=== PATIENT | female | born 1980 | race Caucasian/White ===

== ENCOUNTER 2017-07-13 12:37 | Emergency (ER) | payer OTHER ==
[2017-07-13 12:43] VITALS: BP 132/80; PULSE 94; RESP 18; TEMP 98.5
[2017-07-13] MEDS ORDERED: LORazepam 2 MG/ML INJ IV STA (13:02)
[2017-07-13 13:41] LABS: Acetaminophen <10.0 ug/mL; Salicylate <1.0 mg/dL
[2017-07-13 14:26] LABS: Amphetamine Screen,Urine Not Detected (NotDetected); Barbiturate Screen,Urine Not Detected (NotDetected); Benzodiazepines Screen,Urine Detected (NotDetected); Cocaine Screen,Urine Not Detected (NotDetected); Methadone Screen, Urine Not Detected (NotDetected); Opiate Screen,Urine Not Detected (NotDetected); Oxycodone Screen, Urine Not Detected (NotDetected); Phencyclidine Screen,Urine Not Detected (NotDetected); Tricyclic Antidepressant,Urine Not Detected (NotDetected); Urn Cannabinoid Scrn Detected (NotDetected)
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
[2017-07-13] MEDS ORDERED: ACETAMINOPHEN TAB 325 MG TAB PO STA (19:22)
[2017-07-13] MEDS ORDERED: ALPRAZolam 0.5 MG TAB PO STA (21:23)
== END 2017-07-13 22:11 ==
LOC: EC 12:37
DX: S61.512A Laceration without foreign body of left wrist, initial encounter (principal); F32.9 Major depressive disorder, single episode, unspecified; R45.83 Excessive crying of child, adolescent or adult; K50.90 Crohn's disease, unspecified, without complications; F17.200 Nicotine dependence, unspecified, uncomplicated; Z79.899 Other long term (current) drug therapy; Z88.6 Allergy status to analgesic agent; X78.0XXA Intentional self-harm by sharp glass, initial encounter; Y93.89 Activity, other specified
CPT/HCPCS: 82075; 36415; 80306; 83520 ×2; 99285; 12002; 96374; J2060

== ENCOUNTER 2018-08-08 03:51 | Emergency (ER) | payer OTHER ==
[2018-08-08 04:02] VITALS: BP 101/61; PULSE 90; RESP 20; TEMP 99.4
--- NOTE | 2018-08-08 04:03 | ED ---
Lower Extremity Injury HPI - General Chief Complaint: Extremity Injury, Lower Stated Complaint: ankle injury Source: patient Mode of arrival: wheelchair Limitations: no limitations - History of Present Illness Initial Comments: The patient is a 38-year-old female who reports she was walking when she slipped on the ice twisting her left ankle. Patient states he rarely last night because she was at her cousin's [facility] service. She reports that she was walking home around 3 AM when she slipped on the ice. She had immediate pain she has been able to ambulate at which time she decided to come to the ER for evaluation. She has no history of injury or surgery to this ankle. - Related Data Home Medications Medication Instructions Recorded Confirmed ALPRAZolam [Xanax] 0.5 mg PO BID 07/13/17 08/08/18 PARoxetine HCL [Paxil] 40 mg PO DAILY 07/13/17 08/08/18 predniSONE 40 mg PO DAILY 08/08/18 08/08/18 Previous Rx's Medication Instructions Recorded Ibuprofen [Motrin] 600 mg PO Q8HR PRN #60 tab 08/08/18 Allergies Allergy/AdvReac Type Severity Reaction Status Date / Time aspirin Allergy Swelling Verified 07/13/17 14:03 Review of Systems ROS Statement: Those systems with pertinent positive or pertinent negative responses have been documented in the HPI. ROS Other: All systems not noted in ROS Statement are negative. Past Medical History Additional Past Medical History / Comment(s): Crohn's Disease; Kidney Stones History of Any Multi-Drug Resistant Organisms: None Reported Additional Past Surgical History / Comment(s): Lithotripsy Past Psychological History: Depression Smoking Status: Current every day smoker Past Alcohol Use History: Occasional Past Drug Use History: Marijuana General Exam - General Exam Comments Initial Comments: Physical Exam GENERAL: Patient is well-developed and well-nourished. Patient is nontoxic and well- hydrated and is in no distress. HENT: Normocephalic, Atraumatic. EYES: PERRL, EOMI PULMONARY: Unlabored respirations. No audible rales rhonchi or wheezing was noted. CARDIOVASCULAR: There is a regular rate and rhythm without any murmurs gallops or rubs. ABDOMEN: Soft and nontender with normal bowel sounds. SKIN: Skin is clear with no lesions or rashes and otherwise unremarkable. : Deferred NEUROLOGIC: Patient is alert and oriented x3. Moving all extremities spontaneously MUSCULOSKELETAL: Significant swelling over the lateral malleolus and anterior lateral foot consistent with sprain of the ATF ligament No bony tenderness PSYCHIATRIC: Normal psychiatric evaluation. Limitations: no limitations Limitations: no limitations Course Vital Signs 08/08/18 03:57 Temperature 99.4 F Pulse Rate 90 Respiratory 20 Rate Blood Pressure 101/61 O2 Sat by Pulse 97 Oximetry Medical Decision Making - Medical Decision Making Patient was seen and evaluated history is obtained from the patient patient with a mechanical slip and fall inverting her foot X-rays were ordered and reviewed there is no acute fracture of the there may be some mild bony abnormality on the lateral malleolus no obvious fracture X-ray was read by radiology who agreed there is no acute fracture The ankle was wrapped in an Edilson wrap, rest, ice, compression and elevation were discussed with the patient. 600 mg by mouth Motrin was prescribed. Patient was advised follow-up with her primary care physician but was referred to orthopedics for reevaluation of any persistent pain. All questions pertaining to care were answered to the best my ability the patient was discharged home in stable condition. Disposition Clinical Impression: Left ankle sprain Disposition: HOME SELF-CARE Condition: Stable Instructions (If sedation given, give patient instructions): Ankle Sprain (ED) Prescriptions: Ibuprofen [Motrin] 600 mg PO Q8HR PRN #60 tab PRN Reason: Pain Is patient prescribed a controlled substance at d/c from ED?: No Referrals: Harman Wang MD [Primary Care Provider] - 1-2 days Gian Cruz DO [Medical Doctor] - 1-2 days
--- NOTE | 2018-08-08 04:36 | XR ---
EXAM: XR Left Ankle Complete, 3 or More Views CLINICAL HISTORY: ITS.REASON XR Reason: Pain, slip and fall TECHNIQUE: Frontal, lateral and oblique views of the left ankle. COMPARISON: No relevant prior studies available. IMPRESSION: Soft tissue swelling overlying the lateral malleolus. There is lucency at the lateral cortex of the distal femur, likely a venous channel. No definite fracture or dislocation. Ankle mortise is intact.
== END 2018-08-08 04:55 | disposition home or self-care (01) ==
LOC: EC 03:51
DX: S93.402A Sprain of unspecified ligament of left ankle, initial encounter (principal); F32.9 Major depressive disorder, single episode, unspecified; F17.200 Nicotine dependence, unspecified, uncomplicated; Z88.6 Allergy status to analgesic agent; Z79.52 Long term (current) use of systemic steroids; Z79.899 Other long term (current) drug therapy; Z87.442 Personal history of urinary calculi; Z98.890 Other specified postprocedural states; W00.0XXA Fall on same level due to ice and snow, initial encounter; Y93.01 Activity, walking, marching and hiking
CPT/HCPCS: 99283

== ENCOUNTER → 2021-08-17 | Outpatient (CLI) | payer OTHER ==
--- NOTE | 2021-08-18 07:25 | CT ---
EXAMINATION TYPE: CT abdomen pelvis wo con DATE OF EXAM: 08/17/2021 COMPARISON: 10/01/2010 HISTORY: bilateral flank pain, hx of stones CT DLP: 276.7 mGycm Examination of the solid and hollow viscera is limited given the lack of contrast. FINDINGS: LUNG BASES: No evidence for nodule. No evidence for infiltrate. LIVER/GB: The gallbladder is unremarkable. No space-occupying hepatic lesion. PANCREAS: No pancreatic mass identified. No inflammatory process seen. SPLEEN: No evidence for splenomegaly. No intrasplenic lesions seen. ADRENALS: No adrenal nodules identified. No evidence for thickening. KIDNEYS: 6 mm calculus at the left UPJ resulting in mild to moderate left-sided hydronephrosis. No ad ditional calculi seen at this time. No other renal masses identified. BOWEL: Appendix has a normal appearance. No evidence of bowel obstruction. No inflammatory process. S mall bowel surgical anastomosis seen. Lymph nodes: No evidence for adenopathy greater than 1 cm. Abdominal aorta: Atheromatous changes seen. No evidence for aneurysm. Genital organs: No significant abnormality. Other: No significant abnormality. IMPRESSION: 6 mm calculus at the left UPJ resulting in mild to moderate left-sided hydronephrosis. No additional calculi seen at this time.
== END | disposition home or self-care (01) ==
LOC: RADCTMAIN 16:54
PROVIDERS: ATTEND Internal Medicine
DX: N13.2 Hydronephrosis with renal and ureteral calculous obstruction (principal)
CPT/HCPCS: 74176

== ENCOUNTER → 2021-08-20 | Outpatient (CLI) | payer OTHER ==
--- NOTE | 2021-08-20 13:26 | XR ---
AB HISTORY: N 201, renal calculi KUB submitted on [address] scan 08/17/2021 There is a proximal left ureteral calculus at the level of the left L3 transverse process measuring a pproximately 7-8 mm in size. Postop changes are noted to the bowel. Lung bases are clear. There are p hleboliths present within the pelvis. IMPRESSION: Left-sided ureteral calculus, postop change
== END | disposition home or self-care (01) ==
LOC: RADXRMAIN 12:11
PROVIDERS: ATTEND Urology
DX: N20.1 Calculus of ureter (principal)
CPT/HCPCS: 74018

== ENCOUNTER 2021-08-27 11:30 | Day surgery (SDC) | payer OTHER ==
[2021-08-23 11:59] VITALS: BMI 25.7
--- NOTE | 2021-08-24 09:42 | P.HPIHPCON ---
History of Present Illness H&P Date: 08/24/21 this is a 41-year-old female history of a 8 mm left-sided proximal stone. She is symptomatic from her stone. Options of ESWL and ureteroscopy was discussed with her in detail. She agreed to proceed with left-sided ureteroscopy. Discussed the risk which includes but not limited to bleeding, infection, injury to the ureter. Discussed also risks from anesthesia. Discussed the potential of needing additional operations. She understood all the risk and agree to proceed with left-sided ureteroscopy with holmium laser lithotripsy, stone basketing and stent Consent for Procedure: I have explained the operation/procedure to the patient, including the risks, benefits, side effects, alternative therapies (including not receiving the proposed treatment or service), the likelihood of the patient achieving his/her goals, and potential recuperation problems for the procedure/sedation/analgesia, as well as any blood products, if indicated. I also explained to the patient the risks, benefits and side effects of the alternatives, as well as the risks related to not receiving the proposed procedure, care, treatment, or services. - Constitutional Constitutional: Denies chills, Denies fever - Cardiovascular Cardiovascular: Denies chest pain, Denies shortness of breath - Respiratory Respiratory: Denies cough, Denies 7 - Gastrointestinal Gastrointestinal: Reports abdominal pain, Reports nausea - Genitourinary (Female) Genitourinary: Denies dysuria, Denies hematuria - Musculoskeletal Musculoskeletal: Denies myalgias Past Medical History Additional Past Medical History / Comment(s): Crohn's Disease; Kidney Stones History of Any Multi-Drug Resistant Organisms: None Reported Additional Past Surgical History / Comment(s): Lithotripsy, RT COLECTOMY 04/2021 Past Anesthesia/Blood Transfusion Reactions: No Reported Reaction Smoking Status: Current every day smoker - Past Family History Mother Family Medical History: No Reported History Medications and Allergies Home Medications Medication Instructions Recorded Confirmed Type PARoxetine HCL [Paxil] 40 mg PO HS 07/13/17 08/23/21 History ARIPiprazole [Abilify] 5 mg PO HS 08/23/21 08/23/21 History traZODone HCL 100 mg PO HS 08/23/21 08/23/21 History Allergies Allergy/AdvReac Type Severity Reaction Status Date / Time aspirin Allergy Swelling Verified 08/23/21 11:51 Assessment and Plan Assessment: 41 yo hx of left sided ureteral stone -OR for left-sided ureteroscopy, holmium laser lithotripsy, stone basketing and stent insertion
[~2021-08-27 11:30] MED LIST: LIDOCAINE 1% (10MG/ML) FOR IV START INTRADERMA PRN; ONDANSETRON 4 MG/2 ML VIAL IVP ONE
--- NOTE | 2021-08-27 12:11 | XR ---
EXAMINATION TYPE: XR KUB DATE OF EXAM: 08/27/2021 HISTORY: Pain Comparison: None.Single KUB is submitted for interpretation. Findings: Right renal calculi: None Visualized. Right ureteral calculi: None Visualized. Left renal calculi: None Visualized. Left ureteral calculi: 6 mm left UPJ calculus. Pelvic calcifications: Pelvic phleboliths noted. Bowel gas pattern is unremarkable. No free air. No mass effects. IMPRESSION: 1. 6 mm left UPJ calculus.
[2021-08-27 12:13] VITALS: RESP 16
[2021-08-27] MEDS: LACTATED RINGERS 1,000 ML IV SCH ×2 (12:13→14:40)
[2021-08-27] MEDS ORDERED: DEXAMETHASONE SOD PHOSPHATE 4 MG/ML 1 ML VIAL IV ONE (12:24)
[2021-08-27] MEDS ORDERED: PROPOFOL 10 MG/ML 20 ML VIAL IV ONE (12:33)
[2021-08-27] MEDS ORDERED: MIDAZOLAM 2 MG/2 ML VIAL ONE (12:33)
[2021-08-27] MEDS ORDERED: fentaNYL (PF) 50 MCG/ML 2 ML AMP ONE (12:33)
[2021-08-27] MEDS ORDERED: LIDOCAINE 1% INJ 10MG/ML (20 ML MDV) ONE (12:33)
[2021-08-27] MEDS ORDERED: IOPAMIDOL-370 50ML BTL IRRIGATION ONE (13:30)
--- NOTE | 2021-08-27 13:46 | P.OP ---
Date of Procedure: 08/27/21 Preoperative Diagnosis: Left ureteral stone Postoperative Diagnosis: Same Procedure(s) Performed: Cystoscopy, left ureteroscopy, holmium laser lithotripsy, stone basketing, and retrograde pyelogram Implants: None Anesthesia: AMINAA Surgeon: Ovidio Machado Estimated Blood Loss (ml): 5 Pathology: other (left ureteral stone) Condition: stable Disposition: PACU Indications for Procedure: this is a 41-year-old female history of a 8 mm left-sided proximal stone. She is symptomatic from her stone. Options of ESWL and ureteroscopy was discussed with her in detail. She agreed to proceed with left-sided ureteroscopy. Discussed the risk which includes but not limited to bleeding, infection, injury to the ureter. Discussed also risks from anesthesia. Discussed the potential of needing additional operations. She understood all the risk and agree to p roceed with left-sided ureteroscopy with holmium laser lithotripsy, stone basketing and stent Operative Findings: Left UPJ stone Description of Procedure: Patient brought to the operating room, general anesthesia was induced. She was prepped and draped in sterile fashion and placed in a dorsal lithotomy position. Cystoscopy fitted with a 21-Swiss sheath was inserted per urethra, cystoscopy was performed which showed no abnormality within the bladder. Next a sensor wire was advanced through the scope and up the left ureteral orifice and into the renal pelvis. The stone was radiopaque. Next an [id number] Swiss access sheath was passed over the wire and into the proximal ureter. Next a flexible ureteroscope was inserted through the access sheath, stone was encountered at the UPJ. Using the holmium laser the stone was fragmented into small fragments, sizable fragments were removed using the stone basket. Repeat cystoscopy showed no sizable fragments or injury to the kidney. On fluoroscopy there was no radiopaque fragments. Retrograde pyelogram was performed through the scope to ensure all calyces were evaluated. A pullback ureteroscopy was performed showed no injury to the ureter, thus ureteral stent was not placed. The bladder was emptied at the end of the case, the stones were sent for analysis. Patient tolerated the procedure well was taken to recovery in stable condition
[2021-08-27 13:53] VITALS: TEMP 97.3
[2021-08-27] MEDS ORDERED: KETOROLAC 15 MG/ML 1 ML VIAL ONE (14:34)
[2021-08-27] MEDS ORDERED: KETOROLAC 15 MG/ML 1 ML VIAL IVP ONE (14:35)
[2021-08-27] MEDS: HYDROmorphone 0.5 MG/0.5 ML SYRINGE IVP PRN (14:36)
[2021-08-27 15:06] VITALS: BP 104/68; PULSE 73
--- NOTE | 2021-08-27 16:01 | FL ---
Fluoroscopy HISTORY: Left ureteral calculus 23 seconds fluoroscopy time supplied to the referring clinician. 2 intraoperative C-arm images docum ent the procedure. See dictated report from urology.
== END 2021-08-27 15:12 | disposition home or self-care (01) ==
LOC: OR 11:30
PROVIDERS: ATTEND Urology
DX: N20.1 Calculus of ureter (principal)
CPT/HCPCS: 52356; 81025; 82365; 74420; 74018; C1769; J2250; J1100; J0690; J2405; J2001; J3010; J1885; J2704; J1170; Q9967

== ENCOUNTER → 2021-12-14 | Outpatient (CLI) | payer OTHER | END | disposition home or self-care (01) | LOC: LABWHC1 13:00 | PROVIDERS: ATTEND Internal Medicine Gastroenterology | DX: K50.90 Crohn's disease, unspecified, without complications (principal) | CPT/HCPCS: 36415; 83993; 86480 ==

== ENCOUNTER 2022-02-01 18:59 | Emergency (ER) | payer OTHER ==
--- NOTE | 2022-02-01 20:23 | XR ---
EXAMINATION TYPE: XR wrist complete LT DATE OF EXAM: 02/01/2022 COMPARISON: NONE HISTORY: Fall. Pain TECHNIQUE: 4 views FINDINGS: There is nondisplaced transverse fracture distal radial metaphysis. There is also intra-art icular fracture line extension. No dislocation. The carpal bones are intact. Metacarpals are intact. IMPRESSION: Acute nondisplaced intra-articular and transverse fracture of the distal radius.
--- NOTE | 2022-02-01 20:24 | XR ---
EXAMINATION TYPE: XR hand limited LT DATE OF EXAM: 02/01/2022 COMPARISON: NONE HISTORY: Pain and swelling TECHNIQUE: 2 views FINDINGS: Metacarpals are intact. Carpal bones are intact. Fingers appear intact. No evidence of frac ture of the hand. There is mild soft tissue swelling on the dorsum of the carpus. IMPRESSION: Mild soft tissue swelling. No hand fracture seen.
--- NOTE | 2022-02-01 20:45 | ED ---
Upper Extremity HPI - General Chief Complaint: Extremity Injury, Upper Stated Complaint: Arm Injury Time Seen by Provider: 02/01/22 19:28 Source: patient Mode of arrival: ambulatory Limitations: no limitations - History of Present Illness Initial Comments: Patient is a 41-year-old female presenting with chief complaint of left wrist pain. Patient states that she tripped while wearing high heels, this caused her to fall backwards and land on her outstretched left hand. She admits to pain and swelling. Denies any numbness or tingling. No other pain in other extremities or areas of the body. No weakness. No headache or vision changes. - Related Data Home Medications Medication Instructions Recorded Confirmed PARoxetine HCL [Paxil] 40 mg PO HS 07/13/17 08/27/21 ARIPiprazole [Abilify] 5 mg PO HS 08/23/21 08/27/21 traZODone HCL 100 mg PO HS 08/23/21 08/27/21 Previous Rx's Medication Instructions Recorded Cephalexin [Keflex] 500 mg PO Q12HR #10 cap 08/27/21 traMADol HCl [Ultram] 50 mg PO Q6HR PRN 3 Days #8 tab 08/27/21 Allergies Allergy/AdvReac Type Severity Reaction Status Date / Time aspirin Allergy Swelling Verified 02/01/22 19:22 Review of Systems ROS Statement: Those systems with pertinent positive or pertinent negative responses have been documented in the HPI. ROS Other: All systems not noted in ROS Statement are negative. Past Medical History Additional Past Medical History / Comment(s): Crohn's Disease; Kidney Stones History of Any Multi-Drug Resistant Organisms: None Reported Additional Past Surgical History / Comment(s): Lithotripsy, RT COLECTOMY 04/2021 Past Anesthesia/Blood Transfusion Reactions: No Reported Reaction Past Psychological History: Depression Smoking Status: Former smoker Past Alcohol Use History: None Reported Past Drug Use History: None Reported - Past Family History Mother Family Medical History: No Reported History General Exam Limitations: no limitations General appearance: alert, in no apparent distress Head exam: Present: atraumatic, normocephalic, normal inspection Eye exam: Present: normal appearance, EOMI. Absent: scleral icterus, periorbital swelling Neck exam: Present: normal inspection Left Hand Wrist exam: Present: tenderness, swelling, deformity. Absent: full ROM Neuro motor exam: Present: fingers 2-5 abduction intact Vascular: Absent: vascular compromise Neurological exam: Present: alert, oriented X3, CN II-XII intact Psychiatric exam: Present: normal affect, normal mood Skin exam: Present: warm, dry, intact, normal color. Absent: rash Course Vital Signs 02/01/22 02/01/22 19:23 20:59 Temperature 98.6 F 98.5 F Pulse Rate 91 92 Respiratory 18 16 Rate Blood Pressure 122/72 137/67 O2 Sat by Pulse 98 97 Oximetry Medical Decision Making - Medical Decision Making Patient is a 41-year-old female presenting with chief complaint of left wrist pain. Patient states she was wearing heels when she stumbled and caught herself on her outstretched left hand. She is complaining of pain, swelling, and apparent deformity to the left wrist. On examination there is limited range of motion, she has full sensation and is able to wiggle the fingers. X-ray shows fracture of the distal radius, nondisplaced. Patient was placed in a sugar tong splint and instructed to follow-up with orthopedics. Educated on supportive treatment. Follow-up with PCP. Report back to ER with any new or worsening symptoms. Discussed return parameters and answered all questions. Patient conveyed verbal understanding and agreed to the plan. I discussed this case with my attending Dr. Jaimes Disposition Clinical Impression: Distal radius fracture Disposition: HOME SELF-CARE Condition: Good Instructions (If sedation given, give patient instructions): Wrist Fracture in Adults (ED) Additional Instructions: Follow up with orthopedics and PCP. Report back to ER with any new or worsening symptoms. Take Tylenol as needed for pain control. Is patient prescribed a controlled substance at d/c from ED?: No Referrals: Liban Oneil MD [Primary Care Provider] - 1-2 days Heraclio Barrientos DO [Doctor of Osteopathic Medicine] - 1-2 days Time of Disposition: 20:45
[2022-02-01 21:01] VITALS: BP 137/67; PULSE 92; RESP 16; TEMP 98.5
== END 2022-02-01 21:01 | disposition home or self-care (01) ==
LOC: EC 18:59
DX: S52.502A Unspecified fracture of the lower end of left radius, initial encounter for closed fracture (principal); Z87.891 Personal history of nicotine dependence; Z88.6 Allergy status to analgesic agent; W01.0XXA Fall on same level from slipping, tripping and stumbling without subsequent striking against object, initial encounter

== ENCOUNTER 2022-07-06 11:30 | Inpatient (IN) | payer OTHER ==
--- NOTE | 2022-07-06 12:01 | ED ---
General Adult HPI - General Chief complaint: Shortness of Breath Stated complaint: 6days post , SOB Time Seen by Provider: 07/06/22 11:49 Source: patient, RN notes reviewed Mode of arrival: wheelchair Limitations: no limitations - History of Present Illness Initial comments: Repeat blood pressure 148/68. Patient is a pleasant 6-year-old female presenting to the emergency department with concerns with shortness of breath. Patient did have done 5 days ago. Patient started with shortness of breath 3 days ago. Patient does have leg edema that is persistent and unchanged. No calf pain. No chest pain. No fever. No cough. No headache or visual changes. No change in mental status. No abdominal pain. Persistent nausea or vomiting. - Related Data Home Medications Medication Instructions Recorded Confirmed PARoxetine HCL [Paxil] 40 mg PO HS 07/13/17 08/27/21 ARIPiprazole [Abilify] 5 mg PO HS 08/23/21 08/27/21 traZODone HCL 100 mg PO HS 08/23/21 08/27/21 Previous Rx's Medication Instructions Recorded Cephalexin [Keflex] 500 mg PO Q12HR #10 cap 08/27/21 traMADol HCl [Ultram] 50 mg PO Q6HR PRN 3 Days #8 tab 08/27/21 Allergies Allergy/AdvReac Type Severity Reaction Status Date / Time aspirin Allergy Swelling Verified 07/06/22 11:44 Review of Systems ROS Statement: Those systems with pertinent positive or pertinent negative responses have been documented in the HPI. ROS Other: All systems not noted in ROS Statement are negative. Constitutional: Denies: fever Eyes: Denies: eye pain ENT: Denies: ear pain Respiratory: Reports: as per HPI, dyspnea. Denies: cough Cardiovascular: Reports: edema. Denies: chest pain Endocrine: Denies: fatigue Gastrointestinal: Denies: abdominal pain Genitourinary: Denies: dysuria Musculoskeletal: Denies: back pain Skin: Denies: lesions Past Medical History Additional Past Medical History / Comment(s): Crohn's Disease; Kidney Stones History of Any Multi-Drug Resistant Organisms: None Reported Additional Past Surgical History / Comment(s): Lithotripsy, RT COLECTOMY 04/2021 Past Anesthesia/Blood Transfusion Reactions: No Reported Reaction Past Psychological History: Depression Smoking Status: Former smoker Past Alcohol Use History: None Reported Past Drug Use History: None Reported - Past Family History Mother Family Medical History: No Reported History General Exam Limitations: no limitations General appearance: alert, in no apparent distress Head exam: Present: normocephalic Eye exam: Present: normal appearance Neck exam: Present: normal inspection Respiratory exam: Present: normal lung sounds bilaterally Cardiovascular Exam: Present: regular rate, normal rhythm GI/Abdominal exam: Present: soft. Absent: tenderness Extremities exam: Present: pedal edema. Absent: calf tenderness Neurological exam: Present: alert Psychiatric exam: Present: normal affect, normal mood Skin exam: Present: normal color Course Vital Signs 07/06/22 07/06/22 07/06/22 11:42 12:14 12:22 Temperature 98.8 F Pulse Rate 84 86 Respiratory 16 17 18 Rate Blood Pressure 162/90 148/68 O2 Sat by Pulse 95 99 Oximetry 07/06/22 12:40 Temperature Pulse Rate 80 Respiratory 15 Rate Blood Pressure 146/87 O2 Sat by Pulse 99 Oximetry EKG Findings - EKG Results: EKG: interpreted by ERMD (Right axis), sinus rhythm, normal QRS, normal ST/T Medical Decision Making - Medical Decision Making Was pt. sent in by a medical professional or institution (, PA, [employer] HIGH [employer]CHOOL TEACHER, urgent care, hospital, or longterm...) When possible be specific @ -Patient was sent in by Dr. Daniels Did you speak to anyone other than the patient for history (EMS, parent, family, police, friend...)? What history was obtained from this source @ -No Did you review nursing and triage notes (agree or disagree)? Why? @ -I reviewed and agree with nursing and triage notes Were old charts reviewed (outside hosp., previous admission, EMS record, old EKG, old radiological studies, urgent care reports/EKG's, longterm records)? Report findings @ -No old charts were reviewed Differential Diagnosis (chest pain, altered mental status, abdominal pain women, abdominal pain men, vaginal bleeding, weakness, fever, dyspnea, syncope, headache, dizziness, GI bleed, back pain, seizure, CVA, palpatations, mental health)? @ -Differential Dyspnea: Coronary syndrome, arrhythmia, tamponade, asthma, COPD, pulmonary embolism, pneumonia, pneumothorax, pulmonary effusion, anaphylaxis, diabetic ketoacidosis, flailed chest, pulmonary contusion, diaphragmatic rupture, anemia, neuromuscular, this is not meant to be an all-inclusive list. EKG interpreted by me (3pts min.). @ -As above X-rays interpreted by me (1pt min.). @ -Chest x-ray shows bilateral lower infiltrates CT interpreted by me (1pt min.). @ -ct report reviewed U/S interpreted by me (1pt. min.). @ -None done What testing was considered but not performed or refused? (CT, X-rays, U/S, labs)? Why? @ -None What meds were considered but not given or refused? Why? @ -None Did you discuss the management of the patient with other professionals (professionals i.e. DrMary Jo, PA, [employer]CHO[employer] TE[employer]ER, lab, RT, psych nurse, social media project manager, dragline engineer, teacher, life science technical officer, case making machine operator)? Give summary @ -Dr. Oswald and Dr. Daniels both paged for further discussion Was smoking cessation discussed for >3mins.? @ -No Was critical care preformed (if so, how long)? @ -No Were there social determinants of health that impacted care today? How? (Homelessness, low income, unemployed, alcoholism, drug addiction, transportation, low edu. Level, literacy, decrease access to med. care, care home, rehab)? @ -No Was there de-escalation of care discussed even if they declined (Discuss DNR or withdrawal of care, Hospice)? DNR status @ -No What co-morbidities impacted this encounter? (DM, HTN, Smoking, COPD, CAD, Cancer, CVA, ARF, Chemo, Hep., AIDS, mental health diagnosis, sleep apnea, morbid obesity)? @ -Recent and recent Was patient admitted / discharged? Hospital course, mention meds given and route, prescriptions, significant lab abnormalities, going to OR and other pertinent info. @ -Reevaluated and updated. Patient will be admitted. Dr. Clarice Daniels both paged Undiagnosed new problem with uncertain prognosis? @ -No Drug Therapy requiring intensive monitoring for toxicity (Heparin, Nitro, Insulin, Cardizem)? @ -No Were any procedures done? @ -No Diagnosis/symptom? @ -Pneumonia Acute, or Chronic, or Acute on Chronic? @ -Acute Uncomplicated (without systemic symptoms) or Complicated (systemic symptoms)? @ -Uncomplicated Side effects of treatment? @ -No Exacerbation, Progression, or Severe Exacerbation? @ -No Poses a threat to life or bodily function? How? (Chest pain, [place], [place], pneumonia, PE, COPD, DKA, ARF, appy, cholecystitis, CVA, Diverticulitis, Homicidal, Suicidal, threat to staff... and all critical care pts) @ -Potential threat if pneumonia worsens causing hypoxia or sepsis Case was discussed in detail with Dr. Daniels who will consult. Case also discussed with Dr. Oneil who will admit his patient and does want pulmonary consult. - Lab Data Result diagrams: 07/06/22 11:55 07/06/22 11:55 Lab Results 07/06/22 07/06/22 07/06/22 Range/Units 11:55 11:55 11:55 WBC 9.1 (3.8-10.6) k/uL RBC 3.14 L (3.80-5.40) m/uL Hgb 8.0 L (11.4-16.0) gm/dL Hct 25.4 L (34.0-46.0) % MCV 80.9 (80.0-100.0) fL MCH 25.6 (25.0-35.0) pg MCHC 31.6 (31.0-37.0) g/dL RDW 17.0 H (11.5-15.5) % Plt Count 359 (150-450) k/uL MPV 9.0 Neutrophils % 76 % Lymphocytes % 13 % Monocytes % 5 % Eosinophils % 3 % Basophils % 1 % Neutrophils # 7.0 (1.3-7.7) k/uL Lymphocytes # 1.2 (1.0-4.8) k/uL Monocytes # 0.5 (0-1.0) k/uL Eosinophils # 0.3 (0-0.7) k/uL Basophils # 0.1 (0-0.2) k/uL Hypochromasia Slight Poikilocytosis Slight Anisocytosis Slight PT 10.4 (9.0-12.0) sec INR 1.0 (<1.2) APTT 23.3 (22.0-30.0) sec D-Dimer 5.82 H (<0.60) mg/L FEU Sodium 140 (137-145) mmol/L Potassium 3.9 (3.5-5.1) mmol/L Chloride 114 H (98-107) mmol/L Carbon Dioxide 19 L (22-30) mmol/L Anion Gap 7 mmol/L BUN 13 (7-17) mg/dL Creatinine 0.60 (0.52-1.04) mg/dL Est GFR (CKD-EPI)AfAm >90 (>60 ml/min/1.73 sqM) Est GFR (CKD-EPI)NonAf >90 (>60 ml/min/1.73 sqM) Glucose 100 H (74-99) mg/dL Plasma Lactic Acid Gerhard (0.7-2.0) mmol/L Uric Acid 5.1 (3.7-7.4) mg/dL Calcium 8.2 L (8.4-10.2) mg/dL Magnesium 1.6 (1.6-2.3) mg/dL Total Bilirubin 0.2 (0.2-1.3) mg/dL AST 21 (14-36) U/L ALT 24 (4-34) U/L Alkaline Phosphatase 119 (38-126) U/L Lactate Dehydrogenase 539 (313-618) U/L NT-Pro-B Natriuret Pep pg/mL Total Protein 5.7 L (6.3-8.2) g/dL Albumin 3.0 L (3.5-5.0) g/dL Urine Color Urine Appearance (Clear) Urine pH (5.0-8.0) Ur Specific [place] (1.001-1.035) Urine Protein (Negative) Urine Glucose (UA) (Negative) Urine Ketones (Negative) Urine Blood (Negative) Urine Nitrite (Negative) Urine Bilirubin (Negative) Urine Urobilinogen (<2.0) mg/dL Ur Leukocyte Esterase (Negative) Urine RBC (0-5) /hpf Urine WBC (0-5) /hpf Ur Squamous Epith Cells (0-4) /hpf Influenza Type A (PCR) (Not Detectd) Influenza Type B (PCR) (Not Detectd) RSV (PCR) (Not Detectd) SARS-CoV-2 (PCR) (Not Detectd) 07/06/22 07/06/22 07/06/22 Range/Units 11:55 11:55 11:55 WBC (3.8-10.6) k/uL RBC (3.80-5.40) m/uL Hgb (11.4-16.0) gm/dL Hct (34.0-46.0) % MCV (80.0-100.0) fL MCH (25.0-35.0) pg MCHC (31.0-37.0) g/dL RDW (11.5-15.5) % Plt Count (150-450) k/uL MPV Neutrophils % % Lymphocytes % % Monocytes % % Eosinophils % % Basophils % % Neutrophils # (1.3-7.7) k/uL Lymphocytes # (1.0-4.8) k/uL Monocytes # (0-1.0) k/uL Eosinophils # (0-0.7) k/uL Basophils # (0-0.2) k/uL Hypochromasia Poikilocytosis Anisocytosis PT (9.0-12.0) sec INR (<1.2) APTT (22.0-30.0) sec D-Dimer (<0.60) mg/L FEU Sodium (137-145) mmol/L Potassium (3.5-5.1) mmol/L Chloride (98-107) mmol/L Carbon Dioxide (22-30) mmol/L Anion Gap mmol/L BUN (7-17) mg/dL Creatinine (0.52-1.04) mg/dL Est GFR (CKD-EPI)AfAm (>60 ml/min/1.73 sqM) Est GFR (CKD-EPI)NonAf (>60 ml/min/1.73 sqM) Glucose (74-99) mg/dL Plasma Lactic Acid Gerhard 1.9 (0.7-2.0) mmol/L Uric Acid (3.7-7.4) mg/dL Calcium (8.4-10.2) mg/dL Magnesium (1.6-2.3) mg/dL Total Bilirubin (0.2-1.3) mg/dL AST (14-36) U/L ALT (4-34) U/L Alkaline Phosphatase (38-126) U/L Lactate Dehydrogenase (313-618) U/L NT-Pro-B Natriuret Pep pg/mL Total Protein (6.3-8.2) g/dL Albumin (3.5-5.0) g/dL Urine Color Colorless Urine Appearance Clear (Clear) Urine pH 6.0 (5.0-8.0) Ur Specific [place] 1.007 (1.001-1.035) Urine Protein Negative (Negative) Urine Glucose (UA) Negative (Negative) Urine Ketones Negative (Negative) Urine Blood Trace H (Negative) Urine Nitrite Negative (Negative) Urine Bilirubin Negative (Negative) Urine Urobilinogen <2.0 (<2.0) mg/dL Ur Leukocyte Esterase Negative (Negative) Urine RBC 1 (0-5) /hpf Urine WBC 1 (0-5) /hpf Ur Squamous Epith Cells 1 (0-4) /hpf Influenza Type A (PCR) Not Detected (Not Detectd) Influenza Type B (PCR) Not Detected (Not Detectd) RSV (PCR) Not Detected (Not Detectd) SARS-CoV-2 (PCR) Not Detected (Not Detectd) 07/06/22 Range/Units 11:55 WBC (3.8-10.6) k/uL RBC (3.80-5.40) m/uL Hgb (11.4-16.0) gm/dL Hct (34.0-46.0) % MCV (80.0-100.0) fL MCH (25.0-35.0) pg MCHC (31.0-37.0) g/dL RDW (11.5-15.5) % Plt Count (150-450) k/uL MPV Neutrophils % % Lymphocytes % % Monocytes % % Eosinophils % % Basophils % % Neutrophils # (1.3-7.7) k/uL Lymphocytes # (1.0-4.8) k/uL Monocytes # (0-1.0) k/uL Eosinophils # (0-0.7) k/uL Basophils # (0-0.2) k/uL Hypochromasia Poikilocytosis Anisocytosis PT (9.0-12.0) sec INR (<1.2) APTT (22.0-30.0) sec D-Dimer (<0.60) mg/L FEU Sodium (137-145) mmol/L Potassium (3.5-5.1) mmol/L Chloride (98-107) mmol/L Carbon Dioxide (22-30) mmol/L Anion Gap mmol/L BUN (7-17) mg/dL Creatinine (0.52-1.04) mg/dL Est GFR (CKD-EPI)AfAm (>60 ml/min/1.73 sqM) Est GFR (CKD-EPI)NonAf (>60 ml/min/1.73 sqM) Glucose (74-99) mg/dL Plasma Lactic Acid Gerhard (0.7-2.0) mmol/L Uric Acid (3.7-7.4) mg/dL Calcium (8.4-10.2) mg/dL Magnesium (1.6-2.3) mg/dL Total Bilirubin (0.2-1.3) mg/dL AST (14-36) U/L ALT (4-34) U/L Alkaline Phosphatase (38-126) U/L Lactate Dehydrogenase (313-618) U/L NT-Pro-B Natriuret Pep 1340 pg/mL Total Protein (6.3-8.2) g/dL Albumin (3.5-5.0) g/dL Urine Color Urine Appearance (Clear) Urine pH (5.0-8.0) Ur Specific [place] (1.001-1.035) Urine Protein (Negative) Urine Glucose (UA) (Negative) Urine Ketones (Negative) Urine Blood (Negative) Urine Nitrite (Negative) Urine Bilirubin (Negative) Urine Urobilinogen (<2.0) mg/dL Ur Leukocyte Esterase (Negative) Urine RBC (0-5) /hpf Urine WBC (0-5) /hpf Ur Squamous Epith Cells (0-4) /hpf Influenza Type A (PCR) (Not Detectd) Influenza Type B (PCR) (Not Detectd) RSV (PCR) (Not Detectd) SARS-CoV-2 (PCR) (Not Detectd) - Radiology Data Radiology results: report reviewed Disposition Clinical Impression: Pneumonia Disposition: ADMITTED IP TO THIS HOSP Is patient prescribed a controlled substance at d/c from ED?: No Referrals: Liban Oneil MD [Primary Care Provider] - 1-2 days Time of Disposition: 14:20
[2022-07-06 12:35] LABS: ALT 24 U/L (4-34); AST 21 U/L (14-36); African American GFR (CKD) >90 (>60 ml/min/1.73 sqM); Alkaline Phosphatase 119 U/L (38-126); Anion Gap 7 mmol/L; Appearance,Urine Clear (Clear); Bilirubin,Urine Negative (Negative); Blood Urea Nitrogen 13 mg/dL (7-17); Blood,Urine Trace (Negative); Calcium 8.2 mg/dL (8.4-10.2); Carbon Dioxide 19 mmol/L (22-30); Chloride 114 mmol/L (98-107); Color,Urine Colorless; Glucose 100 mg/dL (74-99); Glucose,Urine (UA) Negative (Negative); Ketones,Urine Negative (Negative); LDH 539 U/L (313-618); Leukocyte Esterase,Urine Negative (Negative); Magnesium 1.6 mg/dL (1.6-2.3); Nitrite,Urine Negative (Negative); Non-African American GFR(CKD) >90 (>60 ml/min/1.73 sqM); Potassium 3.9 mmol/L (3.5-5.1); Protein,Urine Negative (Negative); RBC,Urine 1 /hpf (0-5); Sodium 140 mmol/L (137-145); Specific Gravity,Urine 1.007 (1.001-1.035); Squamous Epithelial Cell,Urine 1 /hpf (0-4); Total Bilirubin 0.2 mg/dL (0.2-1.3); Total Protein 5.7 g/dL (6.3-8.2); Uric Acid 5.1 mg/dL (3.7-7.4); Urobilinogen,Urine <2.0 mg/dL (<2.0); WBC,Urine 1 /hpf (0-5)
[2022-07-06 12:36] LABS: Partial Thromboplastin Time 23.3 sec (22.0-30.0); Prothrombin Time 10.4 sec (9.0-12.0)
[2022-07-06 12:41] LABS: Anisocytosis Slight; Basophils # (A) 0.1 k/uL (0-0.2); Basophils % (A) 1 %; Eosinophils # (A) 0.3 k/uL (0-0.7); Eosinophils % (A) 3 %; HCT 25.4 % (34.0-46.0); Hypochromasia Slight; Lymphocytes # (A) 1.2 k/uL (1.0-4.8); Lymphocytes % (A) 13 %; MCH 25.6 pg (25.0-35.0); MCHC 31.6 g/dL (31.0-37.0); MCV 80.9 fL (80.0-100.0); Monocytes # (A) 0.5 k/uL (0-1.0); Monocytes % (A) 5 %; Neutrophils % (A) 76 %; Platelet Count 359 k/uL (150-450); Poikilocytosis Slight; RBC 3.14 m/uL (3.80-5.40); WBC 9.1 k/uL (3.8-10.6)
--- NOTE | 2022-07-06 13:01 | XR ---
EXAMINATION TYPE: XR chest 2V DATE OF EXAM: 07/06/2022 COMPARISON: NONE HISTORY: Shortness of breath TECHNIQUE: Frontal and lateral views of the chest are obtained. FINDINGS: There are ill-defined opacities in the lung bases bilaterally suspicious for pneumonia. Tiny pleural effusions are not excluded. There is no pneumothorax. Heart and pulmonary vasculature are normal. The osseous structures are intact. IMPRESSION: Bibasilar infiltrates suspicious for pneumonia. Clinical correlation short-term follow-u p to resolution is recommended.
--- NOTE | 2022-07-06 14:02 | CT ---
EXAMINATION TYPE: CT angio chest DATE OF EXAM: 07/06/2022 1:45 PM COMPARISON: None HISTORY: pe CT DLP: 431 mGycm Automated exposure control for dose reduction was used. CONTRAST: CTA scan of the thorax is performed with IV Contrast, patient injected with 85 mL of Isovue 370, pulm onary embolism protocol. 3-D postprocessing was performed.. FINDINGS: There are bibasilar partially consolidative and partially groundglass airspace densities with small-t o-moderate bilateral pleural effusions. Findings are consistent with an acute infectious process. The great vessels the chest are normal and there is no mediastinal, hilar or axillary adenopathy. There are no filling defects within the pulmonary arteries and branches to suggest pulmonary embolism . The osseous structures are intact. Limited scanning the upper abdomen reveals no gross abnormality. IMPRESSION: 1. No evidence of pulmonary embolism. 2. Bibasilar infiltrates and small to moderate bilateral pleural effusions. The findings are suggesti ve of an acute infectious process and clinical correlation is recommended.
[2022-07-06] MEDS ORDERED: IPRATROPIUM-ALBUTEROL 3 ML NEB INHALATION PRN (14:20)
[2022-07-06] MEDS ORDERED: PNEUMONIA PROTOCOL UTILIZED 1 EACH MISC PO PRN (14:20)
[2022-07-06] MEDS ORDERED: AZITHROMYCIN 500 MG in SODIUM CHLORIDE 0.9% 250 ML IVPB STA (14:20)
[2022-07-06] MEDS: SODIUM CHLORIDE 0.9% 1,000 ML IV SCH (15:00)
[2022-07-06] MEDS: IPRATROPIUM-ALBUTEROL 3 ML NEB INHALATION SCH ×2 (16:28→20:05)
[2022-07-06] MEDS ORDERED: IBUPROFEN 600 MG TAB PO PRN (17:47)
[2022-07-06] MEDS: FERROUS SULFATE 325 MG TAB PO SCH (22:07)
[2022-07-06] MEDS: PARoxetine 20 MG TAB PO SCH (22:07)
[2022-07-06] MEDS: PRENATAL VIT-IRON-FOLIC ACID 1 EACH TABLET PO SCH (22:08)
[2022-07-06] MEDS: ARIPiprazole 5 MG TAB PO SCH (22:08)
--- NOTE | 2022-07-07 07:05 | XR ---
EXAMINATION TYPE: XR chest 2V DATE OF EXAM: 07/07/2022 COMPARISON: 07/06/2022 HISTORY: Shortness of breath TECHNIQUE: Frontal and lateral views of the chest are obtained. FINDINGS: There has been mild interval worsening in the changes most consistent with CHF, including mild worsening in the pulmonary vascular congestion interstitial. No change in the small bilateral pl eural effusions. There is no pneumothorax. The osseous structures are intact. IMPRESSION: Mild interval worsening in the changes most consistent with CHF.
[2022-07-07] MEDS: FERROUS SULFATE 325 MG TAB PO SCH ×2 (07:23→21:07)
[2022-07-07] MEDS: AZITHROMYCIN 500 MG TAB PO SCH (07:23)
[2022-07-07] MEDS: IPRATROPIUM-ALBUTEROL 3 ML NEB INHALATION SCH ×4 (07:42→21:24)
[2022-07-07] MEDS ORDERED: FUROSEMIDE 10 MG/ML 4 ML VIAL IV STA (09:27)
--- NOTE | 2022-07-07 10:23 | P.OBCN ---
History of Present Illness Consult date: 07/07/22 Requesting physician: Liban Oneil Reason for consult: other ( 1 week) Chief complaint: Shortness of breath History of present illness: This is a 42-year-old female 2 para 1011 who is status post primary section on 07/01/2022 in [facility] 2 high risk and oligohydramnios. Patient states she underwent a 4-5 day induction prior to nee ding a section for failure to progress. She did deliver a viable male weighing 9 lbs. 14 oz. Patient had care with Dr. Farmer. She was followed by maternal medicine due to her history of Crohn's and anxiety depression. Patient denies any chest pain or productive cough. She just feels like she can't catch her breath. This has improved since she is been admitted. Computed tomography scan in the ER did rule out pulmonary embolism. She was noted to have bilateral infiltrates. Pulmonary has been consulted. She has been on ibuprofen and oxycodone for pain control post section. She began having shortness of breath shortly after coming home from the hospital on Friday. It has worsened up until she came into the emergency room yesterday. She was told that she had anemia after delivery and she recalls that she was told her hemoglobin was as low as 5.5. She has been on iron since delivery. Obstetrical history: . History of 1 miscarriage. History of 1 section on 07/01/2022 for failure to progress. Gynecologic history: History of chlamydia treated in the past. Social history: She works as a substation technician. Review of Systems Constitutional: Denies chills, Denies fever Eyes: denies blurred vision, denies pain Ears, nose, mouth and throat: Denies headache, Denies sore throat Cardiovascular: Reports dyspnea on exertion, Reports leg edema, Reports shortness of breath, Denies chest pain Respiratory: Reports dyspnea, Denies congestion, Denies cough with sputum, Denies pain on inspiration Gastrointestinal: Reports abdominal pain (Tenderness along her incision), Denies nausea, Denies vomiting Genitourinary: Denies pelvic pain, Denies Musculoskeletal: Denies myalgias Integumentary: Denies pruritus, Denies rash Neurological: Reports weakness, Denies numbness, Denies visual changes Psychiatric: Reports anxiety, Reports depression Past Medical History Additional Past Medical History / Comment(s): Crohn's Disease; Kidney Stones History of Any Multi-Drug Resistant Organisms: None Reported Additional Past Surgical History / Comment(s): Lithotripsy, RT COLECTOMY 04/2021 Past Anesthesia/Blood Transfusion Reactions: No Reported Reaction Past Psychological History: Anxiety, Depression Smoking Status: Former smoker Past Alcohol Use History: None Reported Additional Past Alcohol Use History / Comment(s): SMOKES 1 PPD OR LESS SINCE AGE 18 Past Drug Use History: None Reported, Marijuana (History of medical THC prior to ) Additional Drug Use History / Comment(s): ... - Past Family History Mother Family Medical History: No Reported History Medications and Allergies Home Medications Medication Instructions Recorded Confirmed Type PARoxetine HCL [Paxil] 40 mg PO HS 07/13/17 07/06/22 History ARIPiprazole [Abilify] 5 mg PO HS 08/23/21 07/06/22 History Ferrous Sulfate [Iron (65 MG 325 mg PO BID 07/06/22 07/06/22 History Elemental)] Ibuprofen [Motrin] 600 mg PO Q4-6H 07/06/22 07/06/22 History Vit No.179/Iron/Folic 1 tab PO HS 07/06/22 07/06/22 History [ Tablet] oxyCODONE HCL 5 mg PO Q4H PRN 07/06/22 07/06/22 History Allergies Allergy/AdvReac Type Severity Reaction Status Date / Time aspirin Allergy Swelling Verified 07/06/22 16:13 Exam Osteopathic Statement: *. No significant issues noted on an osteopathic structural exam other than those noted in the History and Physical/Consult. Vital Signs Temp Pulse Pulse Resp BP BP Pulse Ox 07/07/22 07:52 76 07/07/22 07:42 76 07/07/22 07:08 97.8 F 77 16 130/92 98 07/07/22 01:00 88 L 07/07/22 00:54 97.8 F 83 20 132/65 94 L 07/06/22 20:18 78 07/06/22 20:07 70 07/06/22 19:30 20 07/06/22 19:26 97.5 F L 80 20 157/81 94 L 07/06/22 16:40 80 07/06/22 16:29 76 95 07/06/22 16:10 97.8 F 83 14 149/90 95 07/06/22 15:40 76 15 150/83 96 07/06/22 15:00 76 18 150/83 95 07/06/22 12:40 80 15 146/87 99 07/06/22 12:22 18 07/06/22 12:14 86 17 148/68 99 07/06/22 11:42 98.8 F 84 16 162/90 95 FiO2 07/07/22 07:52 07/07/22 07:42 07/07/22 07:08 07/07/22 01:00 21 07/07/22 00:54 07/06/22 20:18 07/06/22 20:07 07/06/22 19:30 07/06/22 19:26 07/06/22 16:40 07/06/22 16:29 07/06/22 16:10 07/06/22 15:40 07/06/22 15:00 07/06/22 12:40 07/06/22 12:22 07/06/22 12:14 07/06/22 11:42 Intake and Output 07/06/22 07/07/22 07/07/22 22:59 06:59 14:59 Intake Total 160 Balance 160 Intake: Oral 160 Other: # Voids 1 Gen.: Well-developed well-nourished female in no acute distress comfortable in bed with O2 on. Lungs: Clear to auscultation bilaterally with some crackles in the right base. Heart: Regular rate and rhythm Abdomen: Soft, positive bowel sounds 4. Incision is clean dry and intact with scant yellow discharge. Extremities: Negative Homans, trace edema bilaterally Results Result Diagrams: 07/06/22 11:55 07/06/22 11:55 Abnormal Lab Results - Last 24 Hours (Table) 07/06/22 07/06/22 07/06/22 Range/Units 11:55 11:55 11:55 RBC 3.14 L (3.80-5.40) m/uL Hgb 8.0 L (11.4-16.0) gm/dL Hct 25.4 L (34.0-46.0) % RDW 17.0 H (11.5-15.5) % D-Dimer 5.82 H (<0.60) mg/L FEU Chloride 114 H (98-107) mmol/L Carbon Dioxide 19 L (22-30) mmol/L Glucose 100 H (74-99) mg/dL Calcium 8.2 L (8.4-10.2) mg/dL Total Protein 5.7 L (6.3-8.2) g/dL Albumin 3.0 L (3.5-5.0) g/dL Procalcitonin (0.02-0.09) ng/mL Urine Blood (Negative) 07/06/22 07/06/22 Range/Units 11:55 11:55 RBC (3.80-5.40) m/uL Hgb (11.4-16.0) gm/dL Hct (34.0-46.0) % RDW (11.5-15.5) % D-Dimer (<0.60) mg/L FEU Chloride (98-107) mmol/L Carbon Dioxide (22-30) mmol/L Glucose (74-99) mg/dL Calcium (8.4-10.2) mg/dL Total Protein (6.3-8.2) g/dL Albumin (3.5-5.0) g/dL Procalcitonin 0.69 H (0.02-0.09) ng/mL Urine Blood Trace H (Negative) Chest x-ray: report reviewed CT scan - chest: report reviewed Assessment and Plan Assessment: Status post primary section postoperative day #7 Bilateral pulmonary infiltrates-probable pneumonia versus questionable CHF on today's chest x-ray Plan: Initially patient had elevated blood pressures in ER however these did come down and preeclamptic workup was negative. Patient states she has had some isolated elevated blood pressures when she is anxious. Agree with pulmonary consult. Possible cardiology consult is CHF is a consideration. Dr. Farmer will return tomorrow. Please do not hesitate to contact me if you have any further questions this weekend.
[2022-07-07] MEDS: SODIUM CHLORIDE 0.9% 1,000 ML IV SCH ×2 (10:52→16:54)
--- NOTE | 2022-07-07 11:49 | P.CNPUL ---
History of Present Illness Consult date: 07/07/22 Requesting physician: Liban Oneil Reason for consult: dyspnea, hypoxemia, pneumonia, abnormal CXR/CT Chief complaint: Shortness of breath. History of present illness: Pulmonary consult dated 07/07/2022. 42-year-old female who presents to the emergency department on July 06, complaining of shortness of breath. The patient is status post section, 6 days ago. The patient developed shortness of breath 4 days ago. In addition, the patient complains of some wheezing, and some swelling in her lower extremities. She denied any chest pain or chest discomfort. There is no fever or chills. She denies any cough or phlegm production. She does have a history of tobacco use. The possible pneumonia. She is currently on 3 L. She's getting saline at 100 mL an hour. She's currently on azithromycin and Rocephin. Her pro-calcitonin level 0.69. Her chest x-ray looks wet to us, and we ended up giving her some Lasix, and turning down her IV fluids. In addition, her N-te rminal proBNP was elevated. She has history of Crohn's disease, and kidney stones. She also had a colectomy back in April 2021. Other medical history includes depression. As mentioned, she does have a history of tobacco use. White count 9.1, hemoglobin 8, hematocrit 25.4, and platelet count 359,000. D- dimer was 5.82. Sodium 140, potassium 3.9, chlorides 114, CO2 19, BUN 13, creatinine 0.6. The patient's pro-calcitonin as mentioned was 0.69. N-terminal proBNP was 1340. Repeat was 1660. Urine was negative. Screening for influenza, RSV, and coronavirus was negative. Chest x-ray suggested some bibasilar infiltrates, but the follow-up chest x-ray suggested a touch of fluid overload as well. CT angiogram was negative for pulmonary embolism. Review of Systems REVIEW OF SYSTEMS: CONSTITUTIONAL: [Negative.] NEUROLOGIC: [ Negative.] HEENT: [ Negative.] CARDIAC: Lower extremity edema. PULMONARY: Shortness of breath, and mild wheezing. GI: [Negative.] : [Negative.] RHEUMATOLOGIC: [ Negative.] IMMUNOLOGIC: [ Negative.] ENDOCRINE: [Negative. ] DERMATOLOGIC: [Negative.] Past Medical History Additional Past Medical History / Comment(s): Crohn's Disease; Kidney Stones History of Any Multi-Drug Resistant Organisms: None Reported Additional Past Surgical History / Comment(s): Lithotripsy, RT COLECTOMY 04/2021 Past Anesthesia/Blood Transfusion Reactions: No Reported Reaction Past Psychological History: Anxiety, Depression Smoking Status: Former smoker Past Alcohol Use History: None Reported Additional Past Alcohol Use History / Comment(s): SMOKES 1 PPD OR LESS SINCE AGE 18 Past Drug Use History: None Reported, Marijuana (History of medical THC prior to ) Additional Drug Use History / Comment(s): ... - Past Family History Mother Family Medical History: No Reported History Medications and Allergies Home Medications Medication Instructions Recorded Confirmed Type PARoxetine HCL [Paxil] 40 mg PO HS 07/13/17 07/06/22 History ARIPiprazole [Abilify] 5 mg PO HS 08/23/21 07/06/22 History Ferrous Sulfate [Iron (65 MG 325 mg PO BID 07/06/22 07/06/22 History Elemental)] Ibuprofen [Motrin] 600 mg PO Q4-6H 07/06/22 07/06/22 History Vit No.179/Iron/Folic 1 tab PO HS 07/06/22 07/06/22 History [ Tablet] oxyCODONE HCL 5 mg PO Q4H PRN 07/06/22 07/06/22 History Allergies Allergy/AdvReac Type Severity Reaction Status Date / Time aspirin Allergy Swelling Verified 07/06/22 16:13 Physical Exam Osteopathic Statement: *. No significant issues noted on an osteopathic structural exam other than those noted in the History and Physical/Consult. Vitals: Vital Signs Temp Pulse Pulse Resp BP BP Pulse Ox 07/07/22 11:32 80 07/07/22 11:21 84 07/07/22 07:52 76 07/07/22 07:42 76 07/07/22 07:08 97.8 F 77 16 130/92 98 07/07/22 01:00 88 L 07/07/22 00:54 97.8 F 83 20 132/65 94 L 07/06/22 20:18 78 07/06/22 20:07 70 07/06/22 19:30 20 07/06/22 19:26 97.5 F L 80 20 157/81 94 L 07/06/22 16:40 80 07/06/22 16:29 76 95 07/06/22 16:10 97.8 F 83 14 149/90 95 07/06/22 15:40 76 15 150/83 96 07/06/22 15:00 76 18 150/83 95 07/06/22 12:40 80 15 146/87 99 07/06/22 12:22 18 07/06/22 12:14 86 17 148/68 99 07/06/22 11:42 98.8 F 84 16 162/90 95 FiO2 07/07/22 11:32 07/07/22 11:21 07/07/22 07:52 07/07/22 07:42 07/07/22 07:08 07/07/22 01:00 21 07/07/22 00:54 07/06/22 20:18 07/06/22 20:07 07/06/22 19:30 07/06/22 19:26 07/06/22 16:40 07/06/22 16:29 07/06/22 16:10 07/06/22 15:40 07/06/22 15:00 07/06/22 12:40 07/06/22 12:22 07/06/22 12:14 07/06/22 11:42 Intake and Output 07/06/22 07/07/22 07/07/22 22:59 06:59 14:59 Intake Total 160 Balance 160 Intake: Oral 160 Other: # Voids 1 Oriented 3. Mild conversational dyspnea. The patient appears tachypneic. HEENT examination is grossly unremarkable. Neck supple. Full range of motion. No adenopathy thyromegaly or neck vein distention. Cardiovascular examination reveals regular rhythm rate. S1-S2 normal. No S3 or S4. No discernible murmur noted. Heart rate 80 bpm. Lungs reveal bibasilar crackles. No wheezes. No rhonchi. Breath sounds equal bilaterally. Saturations 98% on 3 L. Abdomen soft bowel sounds are heard. No masses or tenderness. Extremities are intact. No cyanosis or clubbing. Mild edema is present. Skin is without rash or lesion. Neurologic examination is brief but nonfocal. Results - Laboratory Findings CBC and BMP: 07/06/22 11:55 07/06/22 11:55 PT/INR, D-dimer PT 10.4 sec (9.0-12.0) 07/06/22 11:55 INR 1.0 (<1.2) 07/06/22 11:55 D-Dimer 5.82 mg/L FEU (<0.60) H 07/06/22 11:55 Abnormal lab findings: Abnormal Labs 07/06/22 07/06/22 07/06/22 11:55 11:55 11:55 RBC 3.14 L Hgb 8.0 L Hct 25.4 L RDW 17.0 H D-Dimer 5.82 H Chloride 114 H Carbon Dioxide 19 L Glucose 100 H Calcium 8.2 L Total Protein 5.7 L Albumin 3.0 L Procalcitonin Urine Blood 07/06/22 07/06/22 11:55 11:55 RBC Hgb Hct RDW D-Dimer Chloride Carbon Dioxide Glucose Calcium Total Protein Albumin Procalcitonin 0.69 H Urine Blood Trace H - Diagnostic Findings Chest x-ray: image reviewed CT scan - chest: image reviewed Assessment and Plan Assessment: Acute shortness of breath, likely multifactorial, in part related to pneumonia, possibly aspiration, and mild fluid overload, with 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 No evidence of pulmonary embolism on CT angiogram. Recent section, 07/01/2022. History of Crohn's disease. History of kidney stones. History of right colectomy, April 2021. History of tobacco use. Plan: Plan dated 07/07/2022. The patient's pro-calcitonin was elevated at 0.69. The patient is getting azithromycin and Rocephin. The patient's IV fluids were turned down. We gave her a dose of Lasix. Additional recommendations and suggestions are f orthcoming. Labs, x-rays, and medications are reviewed. Finally, we did order an echocardiogram. Prognosis is guarded. Time with Patient: Greater than 30
[2022-07-07 13:11] LABS: Anisocytosis Slight; Basophils % (A) 1 %; Eosinophils # (A) 0.2 k/uL (0-0.7); Eosinophils % (A) 2 %; HCT 24.1 % (34.0-46.0); HGB 7.6 gm/dL (11.4-16.0); Hypochromasia Moderate; Lymphocytes # (A) 1.2 k/uL (1.0-4.8); Lymphocytes % (A) 14 %; MCH 26.4 pg (25.0-35.0); MCHC 31.5 g/dL (31.0-37.0); Monocytes # (A) 0.5 k/uL (0-1.0); Monocytes % (A) 6 %; Neutrophils # (A) 6.2 k/uL (1.3-7.7); Neutrophils % (A) 76 %; Platelet Count 288 k/uL (150-450); RBC 2.87 m/uL (3.80-5.40); WBC 8.2 k/uL (3.8-10.6)
[2022-07-07 13:29] LABS: ALT 22 U/L (4-34); AST 19 U/L (14-36); African American GFR (CKD) >90 (>60 ml/min/1.73 sqM); Albumin 2.6 g/dL (3.5-5.0); Alkaline Phosphatase 105 U/L (38-126); Anion Gap 5 mmol/L; Blood Urea Nitrogen 12 mg/dL (7-17); Carbon Dioxide 22 mmol/L (22-30); Chloride 114 mmol/L (98-107); Globulin 2.5 g/dL; Glucose 86 mg/dL (74-99); Non-African American GFR(CKD) >90 (>60 ml/min/1.73 sqM); Potassium 3.9 mmol/L (3.5-5.1); Sodium 141 mmol/L (137-145); Total Bilirubin <0.1 mg/dL (0.2-1.3); Total Protein 5.1 g/dL (6.3-8.2)
[2022-07-07] MEDS ORDERED: IBUPROFEN 600 MG TAB PO PRN (16:23)
[2022-07-07] MEDS: PRENATAL VIT-IRON-FOLIC ACID 1 EACH TABLET PO SCH (21:07)
[2022-07-07] MEDS: ARIPiprazole 5 MG TAB PO SCH (21:07)
[2022-07-07] MEDS: PARoxetine 20 MG TAB PO SCH (21:07)
--- NOTE | 2022-07-07 21:23 | PN ---
PROGRESS NOTE DATE OF SERVICE: 07/07/2022 CHIEF COMPLAINT: Shortness of breath with bilateral lower lobe infiltrates. HISTORY OF PRESENT ILLNESS: This lady is doing better. She has been urinating frequently during the night secondary to her Lasix, and breathing is much improved. REVIEW OF SYSTEMS: She denies chest pain, cough, hemoptysis, palpitations, etc. PHYSICAL EXAMINATION: CHEST: Demonstrates very few rales. CARDIAC: Normal. ABDOMEN: Soft, nontender and there are no masses. IMPRESSION: Shortness of breath with bilateral lower lobe pulmonary infiltrates. PLAN: 1. Continue to follow her laboratory studies and vital signs. 2. Echocardiogram. MMODL / IJN: [id number] /
--- NOTE | 2022-07-07 21:38 | CONS ---
CONSULTATION CHIEF COMPLAINT: Shortness of breath. HISTORY OF PRESENT ILLNESS: This is another admission for this 42-year-old white female who just delivered a week or so ago. Because of her age, she was at high risk. She went home and did seem to be doing well and then she started to develop shortness of breath. She came to the emergency room where she was identified as having bilateral lower lobe infiltrates. CTA was normal to rule out pulmonary embolism. She has denied any chest pain, history of heart disease, murmurs, rheumatic fever, etc. Her BNP is elevated. REVIEW OF SYSTEMS: Otherwise unremarkable. She has had no headaches, confusion, neurologic symptoms, change in vision or hearing, hemoptysis, purulent sputum production, fever, chills, nausea, vomiting and diarrhea, melena, urinary complaints, frequency, urgency, dysuria, hematuria, incontinence, or diabetes. She did have urinary tract infection during in April. Past medical history, family history, personal and social histories revealed that she is allergic to aspirin, Mucinex, . She has been on Nasacort, aripiprazole 5 mg once a day, Paxil 40 mg once a day. She does smoke. She does carry a diagnosis of bipolar depression. She has had no vaginal bleeding or foul smelling on discharge. PHYSICAL EXAMINATION: VITAL SIGNS: Blood pressure 138/80 with a pulse of 110, respirations of 36, and she is afebrile. GENERAL: She appears to be in no acute distress. She is breathing a little bit better since diuresing overnight. HEAD, EARS, EYES, NOSE, MOUTH AND THROAT: Normal. CHEST: Clear. CARDIAC: Normal. No murmurs or extra sounds. ABDOMEN: Protuberant, soft, nontender without any masses or visceromegaly. EXTREMITIES: Normal. NEUROLOGICAL: She is intact. IMPRESSION: 1. Acute shortness of breath and respiratory failure. 2. Bilateral lower lobe infiltrates. 3. Recent post delivery. 4. Elevated BMP. PLAN: 1. Bedrest. 2. IV fluids. 3. Continue diureses. 4. Echocardiogram. MMODL / IJN: [id number] /
[2022-07-08 07:33] VITALS: RESP 16
[2022-07-08] MEDS: IPRATROPIUM-ALBUTEROL 3 ML NEB INHALATION SCH ×3 (08:16→15:58)
[2022-07-08] MEDS: FERROUS SULFATE 325 MG TAB PO SCH (08:31)
[2022-07-08] MEDS: AZITHROMYCIN 500 MG TAB PO SCH (08:31)
[2022-07-08] MEDS ORDERED: FUROSEMIDE 10 MG/ML 4 ML VIAL IV STA (09:17)
--- NOTE | 2022-07-08 09:22 | P.PN ---
Subjective Progress Note Date: 07/08/22 42-year-old female who presents to the emergency department on July 06, complaining of shortness of breath. The patient is status post section, 6 days ago. The patient developed shortness of breath 4 days ago. In addition, the patient complains of some wheezing, and some swelling in her lower extremities. She denied any chest pain or chest discomfort. There is no fever or chills. She denies any cough or phlegm production. She does have a history of tobacco use. The possible pneumonia. She is currently on 3 L. She's getting saline at 100 mL an hour. She's currently on azithromycin and Rocephin. Her pro-calcitonin level 0.69. Her chest x-ray looks wet to us, and we ended up giving her some Lasix, and turning down her IV fluids. In addition, her N- terminal proBNP was elevated. She has history of Crohn's disease, and kidney stones. She also had a colectomy back in April 2021. Other medical history includes depression. As mentioned, she does have a history of tobacco use. White count 9.1, hemoglobin 8, hematocrit 25.4, and platelet count 359,000. D- dimer was 5.82. Sodium 140, potassium 3.9, chlorides 114, CO2 19, BUN 13, creatinine 0.6. The patient's pro-calcitonin as mentioned was 0.69. N-terminal proBNP was 1340. Repeat was 1660. Urine was negative. Screening for influenza, RSV, and coronavirus was negative. Chest x-ray suggested some bibasilar infiltrates, but the follow-up chest x-ray suggested a touch of fluid overload as well. CT angiogram was negative for pulmonary embolism. on evaluation of 07/08/2022, I'm seeing the patient for a follow-up. The patient is doing well. She is improved compared to yesterday. Echocardiogram was done this morning and is also still pending for now. There may be a component of cardiomyopathy. The patient does have some crackles in lung bases bilaterally. She is currently on oxygen at 3 L/m nasal cannula. Results of the echocardiogram are still pending for now. The blood work from today shows a hemoglobin of 7.6 with a basic on very 0.2. The BUN is 12 with a creatinine of 0.69. Sodium is at 141. ProBNP level was 1660. Pro-calcitonin level was 0.6. CT angiogram of the chest showed no evidence of any pulmonary embolism. There was bilateral pleural effusion. There was cardiomegaly. There was atelectatic change in lung bases bilaterally. Objective - Vital Signs Vital signs: Vital Signs Temp 98.0 F 07/08/22 07:32 Pulse 92 07/08/22 08:26 Resp 16 07/08/22 07:32 BP 136/84 07/08/22 07:32 Pulse Ox 96 07/08/22 08:18 FiO2 21 07/07/22 01:00 Intake & Output 07/07/22 07/08/22 07/08/22 18:59 06:59 18:59 Intake Total 750 Balance 750 Intake: Oral 750 Other: # Voids 1 2 # Bowel Movements 0 - Exam Oriented 3. Mild conversational dyspnea. The patient appears tachypneic. HEENT examination is grossly unremarkable. Neck supple. Full range of motion. No adenopathy thyromegaly or neck vein dis tention. Cardiovascular examination reveals regular rhythm rate. S1-S2 normal. No S3 or S4. No discernible murmur noted. Heart rate 80 bpm. Lungs reveal bibasilar crackles. No wheezes. No rhonchi. Breath sounds equal bilaterally. Saturations 98% on 3 L. Abdomen soft bowel sounds are heard. No masses or tenderness. Extremities are intact. No cyanosis or clubbing. Mild edema is present. Skin is without rash or lesion. Neurologic examination is brief but nonfocal. - Labs CBC & Chem 7: 07/07/22 05:59 07/07/22 05:59 Labs: Abnormal Lab Results - Last 24 Hours (Table) 07/07/22 07/07/22 Range/Units 05:59 05:59 RBC 2.87 L (3.80-5.40) m/uL Hgb 7.6 L (11.4-16.0) gm/dL Hct 24.1 L (34.0-46.0) % RDW 17.0 H (11.5-15.5) % Chloride 114 H (98-107) mmol/L Calcium 8.0 L (8.4-10.2) mg/dL Total Bilirubin <0.1 L (0.2-1.3) mg/dL Total Protein 5.1 L (6.3-8.2) g/dL Albumin 2.6 L (3.5-5.0) g/dL Microbiology - Last 24 Hours (Table) 07/06/22 14:55 Blood Culture - Preliminary Blood No Growth after 24 hours 07/06/22 14:39 Blood Culture - Preliminary Blood No Growth after 24 hours Assessment and Plan Plan: Acute shortness of breath, rule out possibility of cardiomyopathy/fluid overload. No evidence for embolism. No evidence of pneumonia.. No evidence of pulmonary embolism on CT angiogram Anemia, , likely iron deficiency. This is a acute anemia. Hemoglobin is currently at 7.6 Recent section, 07/01/2022. History of Crohn's disease. History of kidney stones. History of right colectomy, April 2021. History of tobacco use. Plan: put the patient on Lasix 40 mg IV every 12 hours awaiting the results of the echocardiogram Restart vitamins Start the patient on oral iron supplements 325 mg daily I do not see personally any need for antibiotics Surgical one-sided dry clean and intact Check thyroid function tests We'll continue to follow
--- NOTE | 2022-07-08 10:56 | CA ---
Transthoracic Echo Report Name: Denia Kaplan Age: 42 Gender: F : 1980 Exam Date: 07/08/2022 07:46 Exam Location: [facility] Ht (in): 63 Wt (lb): 220 Ordering Physician: Alejandra Frank Attending/Referring Phys: Merchandise Collector Imtiaz Marks RDCS Procedure CPT: Indications: CHF, post Cardiac Hx: Technical Quality: Fair Contrast 1: Total Dose (mL): Contrast 2: Total Dose (mL): MEASUREMENTS (Male / Female) Normal Values 2D ECHO LV Diastolic Volume MOD 4C 135.2 cm??? LV Systolic Volume MOD 4C 54.0 cm??? LV Ejection Fraction MOD 4C 60.0 % LV Diastolic Length 4C 8.8 cm LV Systolic Length 4C 7.0 cm M-MODE Aortic Root Diameter MM 2.5 cm LA Systolic Diameter MM 4.7 cm LA Ao Ratio MM 1.8 MV E Point Septal Separation 0.8 cm AV Cusp Separation MM 1.4 cm DOPPLER AV Peak Velocity 154.9 cm/s AV Peak Gradient 9.6 mmHg AI Peak Velocity 511.3 cm/s AI Peak Gradient 104.6 mmHg AI Pressure Half Time 722.3 ms LVOT Peak Velocity 91.0 cm/s LVOT Peak Gradient 3.3 mmHg MV Area PHT 5.7 cm??? MR Peak Velocity 577.4 cm/s MR Peak Gradient 133.4 mmHg Mitral E Point Velocity 127.3 cm/s Mitral A Point Velocity 78.8 cm/s Mitral E to A Ratio 1.6 MV Deceleration Time 132.2 ms TR Peak Velocity 337.4 cm/s TR Peak Gradient 45.5 mmHg Right Atrial Pressure 8.0 mmHg Pulmonary Artery Systolic Pressu 53.5 mmHg Right Ventricular Systolic Press 53.5 mmHg FINDINGS Left Ventricle Normal Left ventricular size, wall thickness, systolic function with no obvious regional wall motion abnormalities. Left ventricular ejection fraction is estimated at 55-60 %. Right Ventricle Normal right ventricular size. Right ventricular systolic pressure estimated at 51.5 mm hg. Right Atrium Moderate right atrial dilatation. Left Atrium Severe left atrial dilatation. Mitral Valve Mitral valve thickened. Moderate mitral regurgitation. Aortic Valve Trileaflet aortic valve. Thickened aortic valve without stenosis. Mild aortic regurgitation. Tricuspid Valve Moderate tricuspid regurgitation. Pulmonic Valve Structurally normal pulmonic valve. Pericardium No pericardial or pleural effusion. Aorta Normal size aortic root and proximal ascending aorta. CONCLUSIONS Normal LV systolic function Moderate mitral regurgitation Biatrial enlargement Moderate to severe pulmonary hypertension with an RV systolic pressure of 51 mm Previewed by: Dr. Kush Aviles MD (Electronically Signed) Final Date: 08 July 2022 10:56
[2022-07-08 10:58] LABS: ALT 23 U/L (4-34); AST 20 U/L (14-36); African American GFR (CKD) >90 (>60 ml/min/1.73 sqM); Albumin 3.6 g/dL (3.5-5.0); Albumin/Globulin Ratio 1.2; Alkaline Phosphatase 124 U/L (38-126); Anion Gap 8 mmol/L; Blood Urea Nitrogen 10 mg/dL (7-17); Calcium 8.8 mg/dL (8.4-10.2); Carbon Dioxide 25 mmol/L (22-30); Chloride 109 mmol/L (98-107); Glucose 99 mg/dL (74-99); Non-African American GFR(CKD) >90 (>60 ml/min/1.73 sqM); Sodium 142 mmol/L (137-145); Total Bilirubin 0.2 mg/dL (0.2-1.3); Total Protein 6.6 g/dL (6.3-8.2)
[2022-07-08 11:22] LABS: Anisocytosis Slight; Basophils % (A) 1 %; Eosinophils # (A) 0.2 k/uL (0-0.7); Eosinophils % (A) 2 %; HCT 30.4 % (34.0-46.0); HGB 9.3 gm/dL (11.4-16.0); Hypochromasia Slight; Lymphocytes # (A) 1.3 k/uL (1.0-4.8); Lymphocytes % (A) 16 %; MCH 25.4 pg (25.0-35.0); MCHC 30.5 g/dL (31.0-37.0); MCV 83.5 fL (80.0-100.0); Mean Platelet Volume 9.5; Monocytes # (A) 0.5 k/uL (0-1.0); Monocytes % (A) 6 %; Neutrophils # (A) 6.4 k/uL (1.3-7.7); Neutrophils % (A) 74 %; Platelet Count 433 k/uL (150-450); RBC 3.64 m/uL (3.80-5.40); RDW 17.7 % (11.5-15.5); WBC 8.6 k/uL (3.8-10.6)
--- NOTE | 2022-07-08 13:45 | XR ---
EXAMINATION TYPE: XR chest 2V DATE OF EXAM: 07/08/2022 COMPARISON: Chest x-ray from one day earlier HISTORY: CHF. TECHNIQUE: Frontal and lateral views of the chest are obtained. FINDINGS: Stable mild cardiomegaly. Stable small bilateral pleural effusions. Improved interstitial edema noted. The osseous structures are intact. IMPRESSION: Findings consistent with improving CHF exacerbation as there is diminishing interstitial edema noted.
--- NOTE | 2022-07-08 13:49 | P.CRDCN ---
History of Present Illness Consult date: 07/08/22 Reason for Consult (text): heart failure History of present illness: History of present illness: This is a 42 year old female with past medical history of depression, iron deficiency, Crohn's disease, kidney stones, recent on July 01 at [facility]. This is patient's first and delivery. We have been consulted regarding heart failure. Patient states she was discharged from the hospital on Friday and developed shortness of breath about 2 days after discharge that progressively worsened until she came into the hospital on Friday. Patient denies cardiac history and does not follow with a family medicine physician assistant. She has a remote history of tobacco use. The patient has been placed on IV Lasix 40 mg every 12 hours and has received 2 doses. She states she is now able to speak in sentences which she was not able to do prior to admission. Antibiotics not recommended by pulmonary medicine. EKG, sinus rhythm Chest x-ray 07/06: Bibasilar infiltrates suspicious for pneumonia. Chest x-ray 07/07: Mild interval worsening in the changes most consistent with heart failure. Chest x-ray 07/08: Pending CTA of the chest: No evidence of pulmonary embolism. Bibasilar infiltrates and small to moderate bilateral pleural effusions. Findings suggestive of acute infectious process and clinical correlation is recommended. WBC 8.6, hemoglobin 9.3, platelet count 433. Potassium 4.0, BUN 10 and c reatinine 0.73. TSH 2.96. Pro-calcitonin 0.69. Liver function tests within normal limits. Influenza A and B, RSV and Covid not detected. D-dimer 5.82. Echocardiogram reveals normal LV systolic function. Moderate mitral regurgitation. Moderate to severe pulmonary hypertension with RV systolic pressure of 51 mm. No home cardiac medications Review Of Systems: At the time of my evaluation: Constitutional: No fever, no chills. No weakness, fatigue or lethargy. EENT: No headache. No dizziness. Lungs: No shortness of breath, cough, no sputum production. No wheezing. Cardiovascular: No chest pain, no lower extremity edema. No palpitations. No paroxysmal nocturnal dyspnea. No orthopnea. No lightheadedness or dizziness. No syncopal episodes. Abdominal: No abdominal pain. No nausea, vomiting. No diarrhea. No constipation. No bloody or tarry stools. Genitourinary: No dysuria.. No urinary retention. Musculoskeletal: No myalgias. No muscle weakness, no frequent falls. No back pain. No neck pain. Integumentary: No wounds. No rash. No unusual bruising. Neurologic: No aphasia. No facial droop. No change in mentation. No head injury. No headache. Psychiatric: No depression. No anxiety. Endocrine: No abnormal blood sugars. Physical examination: Gen: This is a 42-year-old female. She is resting in a recliner and appears to be comfortable and in no acute distress. VS: reviewed HEENT: Head is atraumatic, normocephalic. Pupils equal, round. Sclerae is anicteric. NECK: Supple. No JVD. LUNGS: Diminished bilaterally. No intercostal retractions. HEART: Regular rate and rhythm. Systolic murmur. ABDOMEN: Soft. No tenderness. EXTREMITIES: No pedal edema. NEUROLOGICAL: Patient is awake, alert and oriented x3. Assessment: Moderate mitral regurgitation Moderate to severe pulmonary hypertension Ruled out cardiomyopathy/heart failure by echocardiogram , delivery on 07/01 History of Crohn's status post colectomy Plan: Increase patient's activity and ambulate in the hallway Transition IV Lasix to oral 40 mg daily Discussed results of echocardiogram with patient. If the patient is able to tolerate activity and ambulation, patient is cleared for discharge from cardiology. She may follow up in the office in 4-[address] Aviles. A repeat echocardiogram will be performed at that time. Thank you kindly for this consultation. Nurse practitioner note has been reviewed, I agree with documented findings and plan of care. Patient was seen and examined. Past Medical History Additional Past Medical History / Comment(s): Crohn's Disease; Kidney Stones History of Any Multi-Drug Resistant Organisms: None Reported Additional Past Surgical History / Comment(s): Lithotripsy, RT COLECTOMY 04/2021 Past Anesthesia/Blood Transfusion Reactions: No Reported Reaction Past Psychological History: Anxiety, Depression Smoking Status: Former smoker Past Alcohol Use History: None Reported Additional Past Alcohol Use History / Comment(s): SMOKES 1 PPD OR LESS SINCE AGE 18 Past Drug Use History: None Reported, Marijuana (History of medical THC prior to ) Additional Drug Use History / Comment(s): ... - Past Family History Mother Family Medical History: No Reported History Medications and Allergies Home Medications Medication Instructions Recorded Confirmed Type PARoxetine HCL [Paxil] 40 mg PO HS 07/13/17 07/06/22 History ARIPiprazole [Abilify] 5 mg PO HS 08/23/21 07/06/22 History Ferrous Sulfate [Iron (65 MG 325 mg PO BID 07/06/22 07/06/22 History Elemental)] Ibuprofen [Motrin] 600 mg PO Q4-6H 07/06/22 07/06/22 History Vit No.179/Iron/Folic 1 tab PO HS 07/06/22 07/06/22 History [ Tablet] oxyCODONE HCL 5 mg PO Q4H PRN 07/06/22 07/06/22 History Allergies Allergy/AdvReac Type Severity Reaction Status Date / Time aspirin Allergy Swelling Verified 07/06/22 16:13 Physical Exam Vitals: Vital Signs Temp Pulse Pulse Resp BP Pulse Ox 07/08/22 11:49 92 07/08/22 11:40 90 07/08/22 09:39 90 16 94 L 07/08/22 08:26 92 07/08/22 08:18 91 96 07/08/22 07:32 98.0 F 89 16 136/84 95 07/08/22 02:40 98.1 F 83 20 154/80 94 L 07/07/22 21:35 76 07/07/22 21:24 76 96 07/07/22 19:53 98.4 F 82 19 159/91 97 07/07/22 15:46 76 07/07/22 15:34 76 Intake and Output 07/07/22 07/08/22 07/08/22 22:59 06:59 14:59 Intake Total 750 Balance 750 Intake: Oral 750 Other: # Voids 1 2 # Bowel Movements 0 Results 07/08/22 09:46 07/08/22 09:46 Cardiac Enzymes 07/08/22 Range/Units 09:46 AST 20 (14-36) U/L CBC 07/08/22 Range/Units 09:46 WBC 8.6 (3.8-10.6) k/uL RBC 3.64 L (3.80-5.40) m/uL Hgb 9.3 L D (11.4-16.0) gm/dL Hct 30.4 L (34.0-46.0) % Plt Count 433 (150-450) k/uL Comprehensive Metabolic Panel 07/08/22 Range/Units 09:46 Sodium 142 (137-145) mmol/L Potassium 4.0 (3.5-5.1) mmol/L Chloride 109 H (98-107) mmol/L Carbon Dioxide 25 (22-30) mmol/L BUN 10 (7-17) mg/dL Creatinine 0.73 (0.52-1.04) mg/dL Glucose 99 (74-99) mg/dL Calcium 8.8 (8.4-10.2) mg/dL AST 20 (14-36) U/L ALT 23 (4-34) U/L Alkaline Phosphatase 124 (38-126) U/L Total Protein 6.6 (6.3-8.2) g/dL Albumin 3.6 (3.5-5.0) g/dL Current Medications Generic Name Dose Route Start Last Admin Trade Name Freq PRN Reason Stop Dose Admin Albuterol/Ipratropium 3 ml 07/06/22 16:00 07/08/22 11:39 Ipratropium-Albuterol 3 Ml Neb INHALATION 3 ml RT-QID MICHELLE Administration Albuterol/Ipratropium 3 ml 07/06/22 14:20 Ipratropium-Albuterol 3 Ml Neb INHALATION RT-Q4H PRN shortness of breath Aripiprazole 5 mg 07/06/22 21:00 07/07/22 21:07 Aripiprazole 5 Mg Tab PO 5 mg HS MICHELLE Administration Ferrous Sulfate 325 mg 07/06/22 21:00 07/08/22 08:31 Ferrous Sulfate 325 Mg Tab PO 325 mg BID MICHELLE Administration Furosemide 40 mg 07/08/22 21:00 Furosemide 10 Mg/Ml 4 Ml Vial IV Q12HR MICHELLE Sodium Chloride 1,000 mls @ 20 mls/hr 07/06/22 14:30 07/07/22 16:54 Saline 0.9% IV Not Given .Q24H MICHELLE Ceftriaxone Sodium 2 gm/ 50 mls @ 100 mls/hr 07/07/22 09:00 07/08/22 08:32 Sodium Chloride IVPB 07/10/22 09:29 100 mls/hr Q24HR MICHELLE Administration Protocol Ibuprofen 600 mg 07/07/22 16:23 07/07/22 16:32 Ibuprofen 600 Mg Tab PO 600 mg QID PRN Administration Pain Miscellaneous Information 1 each 07/06/22 14:20 Pneumonia Protocol Utilized 1 Each Misc PO ONCE PRN Per Protocol Oxycodone HCl 5 mg 07/06/22 17:47 07/08/22 13:32 Oxycodone Hcl 5 Mg Tab PO 5 mg Q6HR PRN Administration moderat to severe pain Paroxetine HCl 40 mg 07/06/22 21:00 07/07/22 21:07 Paroxetine 20 Mg Tab PO 40 mg HS MICHELLE Administration Vit/Calcium/Iron/Folic Ac 1 each 07/06/22 21:00 07/07/22 21:07 Bzl-Uhfx-Tgnfz Acid 1 Each Tablet PO 1 each HS MICHELLE Administration Intake and Output 07/07/22 07/08/22 07/08/22 22:59 06:59 14:59 Intake Total 750 Balance 750 Intake: Oral 750 Other: # Voids 1 2 # Bowel Movements 0 07/08/22 09:46 07/08/22 09:46
[2022-07-08 14:25] VITALS: BP 155/82; PULSE 94; TEMP 98.5
[2022-07-08] MEDS ORDERED: FUROSEMIDE 10 MG/ML 4 ML VIAL IV SCH (21:00)
[2022-07-09] MEDS ORDERED: FUROSEMIDE 40 MG TAB PO SCH (09:00)
--- NOTE | 2022-07-09 23:42 | DS ---
DISCHARGE SUMMARY CHIEF COMPLAINT: Shortness of breath. HISTORY OF PRESENT ILLNESS AND PHYSICAL EXAMINATION: Details of this lady's history and physical can be found in the initial workup. LABORATORY STUDIES: While she was in the hospital, she had laboratory studies, details of which can be found in the laboratory section of her chart. COURSE IN THE HOSPITAL: After admission, she was placed on bedrest, started on intravenous fluids. BNP was elevated and it was thought that her clinical picture was more compatible with heart failure and she remained in sinus rhythm. Pulmonary embolism or emboli ruled out with a CTA. She was given Lasix, and her respiratory status improved. She was seen by Cardiology. Echocardiogram was ordered, but the report was not back by the time of her discharge which was approved by Cardiology. She will go home on diuretics and will be seen in the office in several days. She is only a week or 2 and she is trying to breast-feed. This probably represents a cardiomyopathy. FINAL DIAGNOSES: 1. Acute congestive heart failure. 2. cardiomyopathy. 3. History of hypertension. 4. History of bipolar depression. OPERATIONS: None. CONSULTATION: Cardiology. She is improved. MMODL / IJN: [id number] /
== END 2022-07-08 14:25 | disposition home or self-care (01) | DRG 776 ==
LOC: EC 11:30 → 5NMEDONC 14:21 → 4SSUR 19:12
PROVIDERS: ADMIT Family Medicine; ATTEND Family Medicine
DX: O99.43 Diseases of the circulatory system complicating the puerperium (principal); J96.91 Respiratory failure, unspecified with hypoxia; K50.90 Crohn's disease, unspecified, without complications; F31.30 Bipolar disorder, current episode depressed, mild or moderate severity, unspecified; I42.9 Cardiomyopathy, unspecified; Z20.822 Contact with and (suspected) exposure to COVID-19; T50.1X5A Adverse effect of loop [high-ceiling] diuretics, initial encounter; O90.81 Anemia of the puerperium; I25.10 Atherosclerotic heart disease of native coronary artery without angina pectoris; I27.20 Pulmonary hypertension, unspecified; D50.9 Iron deficiency anemia, unspecified; Z87.442 Personal history of urinary calculi; I34.0 Nonrheumatic mitral (valve) insufficiency; I50.9 Heart failure, unspecified; O99.345 Other mental disorders complicating the puerperium; O99.63 Diseases of the digestive system complicating the puerperium; I08.1 Rheumatic disorders of both mitral and tricuspid valves; O99.53 Diseases of the respiratory system complicating the puerperium; Z90.49 Acquired absence of other specified parts of digestive tract; Z87.891 Personal history of nicotine dependence; X58.XXXA Exposure to other specified factors, initial encounter; Z88.6 Allergy status to analgesic agent; Z87.19 Personal history of other diseases of the digestive system
CPT/HCPCS: 36415; 71046; 71275; 80053; 81001; 83605; 83615; 83735; 83880; 84145; 84443; 84550; 85025; 85379; 85610; 85730; 87040; 87636; 93005; 93306; 94640; 94760; 96365; 99285

== ENCOUNTER 2024-06-11 13:48 | Inpatient (IN) | payer BC, MEDICAID ==
--- NOTE | 2024-06-11 14:27 | ED ---
Psych HPI - General Source: patient, family Mode of arrival: ambulatory <Bita Deleon - Last Filed: 06/11/24 14:26> - General Source: patient, family, RN notes reviewed <Molly Marquez - Last Filed: 06/11/24 18:36> - General Chief Complaint: Psychiatric Symptoms Stated Complaint: Mental health eval Time Seen by Provider: 06/11/24 14:27 - History of Present Illness Initial Comments: Quick note: 44-year-old female presented the ER for evaluation of mental health. Patient reports suicidal ideations without plan. Patient denies any alcohol or drug use. Patient denies any current pain. No hallucinations. (Bita Deleon) 44-year-old female presenting today with sister for mental health evaluation. Patient was sent by her PCP. States she has been more depressed than normal over the past 2 days. States her and her have not been getting along which he feels is triggering the depression. Denies thoughts of harming herself or anyone else. Takes Wellbutrin. (Molly Marquez) - Related Data Home Medications Medication Instructions Recorded Confirmed Phentermine HCl [Adipex-P] 37.5 mg PO DAILY@1330 06/11/24 06/11/24 buPROPion HCL [Wellbutrin XL] 150 mg PO DAILY@1330 06/11/24 06/11/24 Allergies Allergy/AdvReac Type Severity Reaction Status Date / Time aspirin Allergy Swelling/hi Verified 06/11/24 17:42 ves Review of Systems ROS Other: All systems not noted in ROS Statement are negative. <Bita Deleon - Last Filed: 06/11/24 14:26> ROS Other: All systems not noted in ROS Statement are negative. <Molly Marquez - Last Filed: 06/11/24 18:36> ROS Statement: Those systems with pertinent positive or pertinent negative responses have been documented in the HPI. Past Medical History Additional Past Medical History / Comment(s): Crohn's Disease; Kidney Stones History of Any Multi-Drug Resistant Organisms: None Reported Additional Past Surgical History / Comment(s): Lithotripsy, RT COLECTOMY 04/2021 Past Anesthesia/Blood Transfusion Reactions: No Reported Reaction Past Psychological History: Anxiety, Depression Smoking Status: Former smoker Past Alcohol Use History: None Reported Past Drug Use History: None Reported, Marijuana - Past Family History Mother Family Medical History: No Reported History <Bita Deleon - Last Filed: 06/11/24 14:26> General Exam Limitations: no limitations <Bita Deleon - Last Filed: 06/11/24 14:26> General appearance: alert, in no apparent distress, other Head exam: Present: atraumatic, normocephalic, normal inspection Eye exam: Present: normal appearance. Absent: scleral icterus, conjunctival injection, periorbital swelling Neurological exam: Present: alert, oriented X3 Psychiatric exam: Present: depressed, flat affect, other (No eye contact during evaluation). Absent: homicidal ideation, suicidal ideation Skin exam: Present: warm, dry, intact, normal color. Absent: rash <Molly Marquez - Last Filed: 06/11/24 18:36> - General Exam Comments Initial Comments: Visual Physical Exam Vital signs reviewed General: Well-appearing, nontoxic, no acute distress. Flat affect Head: Normocephalic, atraumatic Eyes: PERRLA, EOMI ENT: Airway patent Chest: Nonlabored breathing Skin: No visual rash, normal skin tone Neuro: Alert and oriented 3 Musculoskeletal: No gross abnormalities (Bita Deleon) Course Vital Signs 06/11/24 13:54 Temperature 98.2 F Pulse Rate 85 Respiratory 16 Rate Blood Pressure 121/82 O2 Sat by Pulse 99 Oximetry Medical Decision Making <Bita Deleon - Last Filed: 06/11/24 14:26> <Molly Marquez - Last Filed: 06/11/24 18:36> - Medical Decision Making I performed the quick note portion of this chart. Electronically signed by Bita Deleon PA-C (Bita Deleon) Was pt. sent in by a medical professional or institution ([facility], CELL REPAIRER, urgent care, hospital, or half-way...) When possible be specific @ -No Did you speak to anyone other than the patient for history (EMS, parent, family, police, friend...)? What history was obtained from this source @ -No Did you review nursing and triage notes (agree or disagree)? Why? @ -I reviewed and agree with nursing and triage notes Were old charts reviewed (outside hosp., previous admission, EMS record, old EKG, old radiological studies, urgent care reports/EKG's, half-way records)? Report findings @ -No old charts were reviewed Differential Diagnosis (chest pain, altered mental status, abdominal pain women, abdominal pain men, vaginal bleeding, weakness, fever, dyspnea, syncope, headache, dizziness, GI bleed, back pain, seizure, CVA, palpatations, mental health, musculoskeletal)? @ -Differential Mental Health Depression, anxiety, bipolar, psychosis, schizophrenia, borderline personality, situational depression, adjustment disorder, behavioral disorder, brain tumor, malingering, substance abuse, encephalopathy, medication reaction, dementia, hypothyroidism, degenerative neurologic disorder, lupus.... This is not meant to be all-inclusive list EKG interpreted by me (3pts min.). @ -None X-rays interpreted by me (1pt min.). @ -None done CT interpreted by me (1pt min.). @ -None done U/S interpreted by me (1pt. min.). @ -None done What testing was considered but not performed or refused? (CT, X-rays, U/S, labs)? Why? @ -None What meds were considered but not given or refused? Why? @ -None Did you discuss the management of the patient with other professionals (professionals i.e. , PA, CELL REPAIRER, lab, RT, psych nurse, high school social studies tutor, organic preparation analyst, teacher, digital controls technical officer, special education case manager)? Give summary @ -I spoke with Baldemar from [facility] who recommends admission for inpatient treatment. I agree with this plan. Was smoking cessation discussed for >3mins.? @ -No Was critical care preformed (if so, how long)? @ -No Were there social determinants of health that impacted care today? How? (Homelessness, low income, unemployed, alcoholism, drug addiction, transportation, low edu. Level, literacy, decrease access to med. care, snf, rehab)? @ -No Was there de-escalation of care discussed even if they declined (Discuss DNR or withdrawal of care, Hospice)? DNR status @ -No What co-morbidities impacted this encounter? (DM, HTN, Smoking, COPD, CAD, Cancer, CVA, ARF, Chemo, Hep., AIDS, mental health diagnosis, sleep apnea, morbid obesity)? @ -None Was patient admitted / discharged? Hospital course, mention meds given and route, prescriptions, significant lab abnormalities, going to OR and other pertinent info. @ -Admitted. This is a 44-year-old female presenting for mental health evaluation. Denies suicidal or homicidal ideation, however she ports feeling more depressed over the past couple of days because she has been fighting with her . No medical complaints at this time. Patient was cleared to be seen by [facility]. I spoke with Baldemar from [facility] who recommends admission for inpatient treatment. I agree with this plan. Case was discussed with my ED attending Dr. Puckett. Undiagnosed new problem with uncertain prognosis? @ -No Drug Therapy requiring intensive monitoring for toxicity (Heparin, Nitro, Insulin, Cardizem)? @ -No Were any procedures done? @ -No Diagnosis/symptom? @ -Major depressive disorder Acute, or Chronic, or Acute on Chronic? @ -Acute Uncomplicated (without systemic symptoms) or Complicated (systemic symptoms)? @ -Complicated Side effects of treatment @ -No Exacerbation, Progression, or Severe Exacerbation? @ -No Poses a threat to life or bodily function? How? (Chest pain, USA, MA, pneumonia, PE, COPD, DKA, ARF, appy, cholecystitis, CVA, Diverticulitis, Homicidal, Suicidal, threat to staff... and all critical care pts) @ -Yes (Molly Marquez) - Lab Data Lab Results 06/11/24 Range/Units 17:37 Urine Opiates Screen Detected H (NotDetected) Ur Oxycodone Screen Not Detected (NotDetected) Urine Methadone Screen Not Detected (NotDetected) Ur Barbiturates Screen Not Detected (NotDetected) U Tricyclic Antidepress Not Detected (NotDetected) Ur Phencyclidine Scrn Not Detected (NotDetected) Ur Amphetamines Screen Detected H (NotDetected) U Methamphetamines Scrn Not Detected (NotDetected) U Benzodiazepines Scrn Not Detected (NotDetected) Urine Cocaine Screen Not Detected (NotDetected) U Marijuana (THC) Screen Detected H (NotDetected) Disposition <Bita Deleon - Last Filed: 06/11/24 14:26> Time of Disposition: 18:17 <Molly Marquez - Last Filed: 06/11/24 18:36> Clinical Impression: Major depression Disposition: ADMITTED IP TO THIS HOSP Referrals: Liban Oneil MD [Primary Care Provider] - 1-2 days
[2024-06-11] MEDS: LORazepam 1 MG TAB PO STA (16:41)
[2024-06-11 18:21] LABS: Amphetamine Screen,Urine Detected (NotDetected); Barbiturate Screen,Urine Not Detected (NotDetected); Benzodiazepines Screen,Urine Not Detected (NotDetected); Cocaine Screen,Urine Not Detected (NotDetected); Methadone Screen, Urine Not Detected (NotDetected); Opiate Screen,Urine Detected (NotDetected); Oxycodone Screen, Urine Not Detected (NotDetected); Phencyclidine Screen,Urine Not Detected (NotDetected); Tricyclic Antidepressant,Urine Not Detected (NotDetected); Urn Cannabinoid Scrn Detected (NotDetected)
[2024-06-11] MEDS ORDERED: MAGNESIUM HYDROXIDE 2,400 MG/30 ML CUP PO PRN (22:45)
[2024-06-11] MEDS ORDERED: LORazepam 2 MG/ML INJ IM PRN (22:45)
[2024-06-11] MEDS ORDERED: traZODone HCL 50 MG TAB PO PRN (22:45)
[2024-06-11] MEDS ORDERED: HALOPERIDOL LACTATE 5 MG/ML 1 ML VIAL IM PRN (22:45)
[2024-06-11] MEDS ORDERED: MAG HYDROX/AL HYDROX/SIMETH 355 ML BOTTLE PO PRN (22:45)
[2024-06-11] MEDS: LORazepam 1 MG TAB PO PRN (23:39)
[2024-06-12 00:05] LABS: Appearance,Urine Clear (Clear); Bacteria,Urine Rare /hpf; Bilirubin,Urine Negative (Negative); Blood,Urine Trace (Negative); Budding Yeast,Urine Rare /hpf; Color,Urine Light Yellow; Glucose,Urine (UA) Negative (Negative); Ketones,Urine Negative (Negative); Leukocyte Esterase,Urine Negative (Negative); Mucus,Urine Moderate /hpf; Nitrite,Urine Negative (Negative); Protein,Urine Negative (Negative); RBC,Urine 2 /hpf (0-5); Specific Gravity,Urine 1.014 (1.001-1.035); Squamous Epithelial Cell,Urine 2 /hpf (0-4); Urobilinogen,Urine <2.0 mg/dL (<2.0); WBC,Urine 4 /hpf (0-5)
[2024-06-12 07:59] LABS: Basophils # (A) 0.1 k/uL (0-0.2); Basophils % (A) 1 %; Eosinophils # (A) 0.3 k/uL (0-0.7); Eosinophils % (A) 3 %; HCT 40.9 % (34.0-46.0); Lymphocytes # (A) 2.3 k/uL (1.0-4.8); Lymphocytes % (A) 29 %; MCH 29.2 pg (25.0-35.0); MCHC 31.9 g/dL (31.0-37.0); MCV 91.7 fL (80.0-100.0); Mean Platelet Volume 8.9; Monocytes # (A) 0.5 k/uL (0-1.0); Monocytes % (A) 6 %; Neutrophils # (A) 4.6 k/uL (1.3-7.7); Neutrophils % (A) 59 %; Platelet Count 269 k/uL (150-450); RBC 4.46 m/uL (3.80-5.40); RDW 13.2 % (11.5-15.5); WBC 7.7 k/uL (3.8-10.6)
[2024-06-12 08:07] LABS: ALT 13 U/L (4-34); AST 15 U/L (14-36); African American GFR (CKD) >90 (>60 ml/min/1.73 sqM); Albumin 3.8 g/dL (3.5-5.0); Alkaline Phosphatase 62 U/L (38-126); Anion Gap 6 mmol/L; Blood Urea Nitrogen 8 mg/dL (7-17); Calcium 9.2 mg/dL (8.4-10.2); Carbon Dioxide 24 mmol/L (22-30); Chloride 110 mmol/L (98-107); Glucose 91 mg/dL (74-99); Non-African American GFR(CKD) >90 (>60 ml/min/1.73 sqM); Potassium 3.6 mmol/L (3.5-5.1); Sodium 140 mmol/L (137-145); Total Bilirubin 0.3 mg/dL (0.2-1.3); Total Protein 6.2 g/dL (6.3-8.2)
[2024-06-12] MEDS: NICOTINE 14MG/24HR PATCH TRANSDERM SCH (08:47)
[2024-06-12] MEDS: buPROPion XL 300 MG TAB.ER.24H PO SCH (09:36)
[2024-06-12] MEDS: LORazepam 1 MG TAB PO PRN (09:37)
[2024-06-12] MEDS: FLUoxetine HCL 10 MG CAP PO SCH (09:38)
[2024-06-12] MEDS: haloperidoL 5 MG TAB PO PRN (09:39)
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
[2024-06-13 07:10] VITALS: RESP 16
--- NOTE | 2024-06-13 08:40 | P.PN ---
Subjective Progress Note Date: 06/13/24 Principal diagnosis: major depression recurrent severe nonpsychotic subjective: The patient says she had a lot of trouble sleeping but did not taking trazodone last night. I'll change it over to regular rhythm when necessary is I think she just forgot she has not taken a new medicines he had she continues to be depressed and slowed down Mentalstatus: Slow responses poor eye contact decreased psychomotor activity soft-spoken still feeling hopeless although no particular preoccupation with ways to kill herself just can't see any hope for the future low energy denies any psychotic symptoms no urge to hurt anyone else. She is oriented cooperative minimal self-care Diagnosis major depression nonpsychotic severe. Assessment I believe that she is a danger to herself due to the severity of the depression and having no plans no hope no supports in being constantly tearful. Plan: watch the patient for safety increase the Wellbutrin at 300 and add Prozac give her when necessary's. I'm going to make the trazodone regular resident when necessary so she get a good night sleep Help her work on post discharge plans Objective - Vital Signs Vital signs: Vital Signs Temp 97.7 F 06/13/24 06:46 Pulse 78 06/13/24 06:46 Resp 16 06/13/24 06:46 BP 110/73 06/13/24 06:46 Pulse Ox 97 06/13/24 06:46 FiO2 - Labs CBC & Chem 7: 06/12/24 07:35 06/12/24 07:35
[2024-06-13] MEDS: traZODone HCL 100 MG TAB PO SCH (20:25)
[2024-06-14] MEDS: ACETAMINOPHEN TAB 325 MG TAB PO PRN (04:27)
[2024-06-14 07:20] VITALS: BP 114/79; PULSE 101; TEMP 97.2
--- NOTE | 2024-06-14 09:11 | HP ---
HISTORY AND PHYSICAL CHIEF COMPLAINT: Major depression. HISTORY OF PRESENT ILLNESS: This is another admission for this 44-year-old female who came in with depression and thoughts of suicide. All she will say is that she has a problem with her . REVIEW OF SYSTEMS: She denies any chest pain, abdominal pain, urinary complaints, etc. Past medical history, family history, personal and social histories are unremarkable. She is on Wellbutrin. PHYSICAL EXAMINATION: VITAL SIGNS: Normal. HEAD, EARS, EYES, NOSE, MOUTH AND THROAT: Normal. CHEST: Clear. CARDIAC: Normal. ABDOMEN: Soft, nontender. IMPRESSION: Major depression with suicidal thoughts. RECOMMENDATIONS: None. MMODL / IJN: [id number] /
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
== END 2024-06-14 11:58 | disposition home or self-care (01) | DRG 885 ==
LOC: EC 13:48 → 3MHU 22:33
PROVIDERS: ADMIT Psychiatry & Neurology Psychiatry; ATTEND Psychiatry & Neurology Psychiatry
DX: F33.2 Major depressive disorder, recurrent severe without psychotic features (principal); K50.90 Crohn's disease, unspecified, without complications; R45.851 Suicidal ideations; F12.10 Cannabis abuse, uncomplicated; F17.200 Nicotine dependence, unspecified, uncomplicated; F41.9 Anxiety disorder, unspecified; Z79.899 Other long term (current) drug therapy; Z87.442 Personal history of urinary calculi; Z88.6 Allergy status to analgesic agent
CPT/HCPCS: 80053; 80306; 81001; 81025; 82075; 84443; 85025; 87635; 99285